=== PATIENT | female | born 1965 | race African-American/Black ===

== ENCOUNTER 2016-06-25 18:53 | Emergency (ER) | payer OTHER ==
[~2016-06-25] VITALS: Ht 170.2 cm; Wt 104.3 kg
[~2016-06-25 18:53] MED LIST: ALBUTEROL SULF8.5 GM INH; ANUSOL-HC25 MG RECTAL; ASPIR 8181 MG PO; AUGMENTIN 875-1 EAC1 ORAL; AZITHROMYCIN250 MG ORAL; CIPROFLOXACIN500 M2 ORAL; CLOTRIMAZOLE-745 GM VG; CODEINE 30MG TA30 MG PO; DIFLUCAN100 MG ORAL; DIFLUCAN200 MG ORAL; FLUCONAZOLE100 MG ORAL; FUROSEMIDE20 M1 ORAL; HYDROCODON-ACE1 EA18 PO; IBUPROFEN600 MG ORAL; IBUPROFEN800 MG ORAL; MACRODANTIN100 MG ORAL; MUPIROCIN15 GM TOPIC; NAPROXEN375 MG ORAL; NORCO 10/3251 EA ORAL; NORCO 5-325 TA1 EACH ORAL; OXYCONTIN10 MG PO; PREDNISONE20 MG ORAL; PROMETHAZINE-C118 M1 ORAL; ZOCOR20 MG ORAL; ZYRTEC10 MG ORAL
[2016-06-25] MEDS ORDERED: POTASSIUM 25 M25 ME1 PO (19:05)
[2016-06-25] MEDS ORDERED: OMEPRAZOLE40 M1 ORAL (19:05)
[2016-06-25] MEDS ORDERED: Aspirin Baby 81mg ORAL ONE (19:30)
[2016-06-25] MEDS ORDERED: Ketorolac 30mg Inj IV ONE (19:30)
[2016-06-25] MEDS ORDERED: Famotidine 20 MG/ 2ML VIAL IVP ONE (19:30)
[2016-06-25] MEDS ORDERED: Mylanta II UD 30ml ORAL ONE (19:30)
--- NOTE | 2016-06-25 19:30 | Emergency Room Report ---
History of Present Illness General Chief Complaint: Chest Pain Source: Patient Present Illness HPI Patient presents with substernal chest pain. Been intermittent. Some exertional. When she feels anxious she gets grabbing pain in the center of her chest. It radiates somewhat to her right arm. She also feels acid in her stomach. She was given a prescription for omeprazole by her doctor. She's been she's been taking it. She also has hypertension has been taking medication for that. She did not take her aspirin this morning. Patient is under tremendous stress at this time. She also complained of a migraine headache on the left-hand side that is throbbing. She is asking for some Toradol for this pain. Her doctors ordered a battery of tests. When she has headaches like this she gets numbness in her right arm. This is intermittent. She just saw her MD today and he recommended she come to the emergency department. No dysuria, change in bowels. No vomiting. No fevers or change in vision. Allergies: Coded Allergies: No Known Allergies (Verified , 02/13/16) Patient History Past Medical History: see triage record Social History: Denies: smoking Social History Narrative , works for [employer] : 2 Para: 2 Reviewed Nursing Documentation: PMH: Agreed, PSxH: Agreed Nursing Documentation-PMH Hx Hypertension: Yes Hx Pacemaker: No Hx Asthma: Yes - Bronchitis, Emphysema Hx COPD: No Hx Diabetes: No Hx Cancer: No Hx Dialysis: No Hx Cerebrovascular Accident: No Hx Seizures: No Review of Systems All Other Systems: negative except mentioned in HPI Physical Exam Vital Signs Date Time Temp Pulse Resp B/P Pulse Ox O2 Delivery O2 Flow Rate FiO2 06/25/16 18:58 97.9 63 16 151/90 99 Room Air Sp02 EP Interpretation: reviewed, normal General Appearance: well appearing, no apparent distress, GCS 15 Head: normocephalic Eyes: bilateral eye EOMI, bilateral eye PERRL, bilateral eye normal inspection ENT: moist mucus membranes Neck: supple, no bony tend Respiratory: chest non-tender, lungs clear, normal breath sounds Cardiovascular #1: regular rate, rhythm Cardiovascular #2: 2+ radial (R) Gastrointestinal: normal inspection, normal bowel sounds, non tender, no mass, non-distended Musculoskeletal: back normal, gait/station normal, normal range of motion Neurologic: alert, oriented x3, risk control field representative III-XII nml as tested, motor strength/tone normal, DTRs symmetric, sensory intact, cerebellar normal, normal gait, speech normal Psychiatric: no suicidal/homicidal ideation, depressed affect, anxious Skin: normal inspection, warm/dry Medical Decision Making Diagnostic Impression: Primary Impression: Chest pain Qualified Codes: R07.9 - Chest pain, unspecified Additional Impressions: Esophageal spasm Headache Qualified Codes: R51 - Headache Stress ER Course The patient presents with chest pain that sounds atypical. However due to her the risk factor of hypertension the patient is evaluation for acute coronary syndrome and acute myocardial infarction. VS against PE. Will be evaluated with labs, EKG, chest x-ray. She'll be given aspirin and also she is requesting Toradol. The sounds were esophageal visuals be given Mylanta and Pepcid IV. She's her commencement of stress at this time. Her thyroid be checked also. EKG normal. CXR no CP disease. Labs unremarkable. Patient improved but still c/o headache. Percocet ordered. Patient improved with treatment. Discussed stress. Patient stable for outpatient observation and treatment Laboratory Tests Test 06/25/16 19:25 White Blood Count 7.2 K/UL (4.8-10.8) Red Blood Count 5.96 M/UL (4.20-5.40) H Hemoglobin 12.2 G/DL (12.0-16.0) Hematocrit 39.8 % (37.0-47.0) Mean Corpuscular Volume 67 FL (80-99) L Mean Corpuscular Hemoglobin 20.4 PG (27.0-31.0) L Mean Corpuscular Hemoglobin Concent 30.6 G/DL (32.0-36.0) L Red Cell Distribution Width 13.2 % (11.6-14.8) Platelet Count 173 K/UL (150-450) Mean Platelet Volume 11.9 FL (6.5-10.1) H Neutrophils (%) (Auto) 42.9 % (45.0-75.0) L Lymphocytes (%) (Auto) 41.8 % (20.0-45.0) Monocytes (%) (Auto) 7.9 % (1.0-10.0) Eosinophils (%) (Auto) 5.7 % (0.0-3.0) H Basophils (%) (Auto) 1.7 % (0.0-2.0) Urine Color Pale yellow Urine Appearance Slightly cloudy Urine pH 5 (4.5-8.0) Urine Specific [place] 1.015 (1.005-1.035) Urine Protein Negative (NEGATIVE) Urine Glucose (UA) Negative (NEGATIVE) Urine Ketones Negative (NEGATIVE) Urine Occult Blood 1+ (NEGATIVE) H Urine Nitrite Negative (NEGATIVE) Urine Bilirubin Negative (NEGATIVE) Urine Urobilinogen Normal MG/DL (0.0-1.0) Urine Leukocyte Esterase Negative (NEGATIVE) Urine RBC 0-2 /HPF (0 - 2) Urine WBC 0-2 /HPF (0 - 2) Urine Squamous Epithelial Cells Many /LPF (NONE/OCC) H Urine Bacteria Few /HPF (NONE) Sodium Level 139 mEQ/L (135-145) Potassium Level 4.1 mEQ/L (3.4-4.9) Chloride Level 99 mEQ/L (98-107) Carbon Dioxide Level 25 mEQ/L (20-30) Anion Gap 15 (5-15) Blood Urea Nitrogen 16 mg/dL (7-23) Creatinine 1.1 mg/dL (0.5-0.9) H Estimate Glomerular Filtration Rate > 60 mL/min (>60) Glucose Level 89 mg/dL (74-106) Calcium Level 9.2 mg/dL (8.6-10.2) Total Bilirubin 0.2 mg/dL (0.0-1.2) Aspartate Amino Transferase (AST) 17 U/L (5-40) Alanine Aminotransferase (ALT) 10 U/L (3-33) Alkaline Phosphatase 80 U/L (35-104) Total Creatine Kinase 92 U/L (26-140) Troponin I < 0.30 ng/mL (<=0.30) Total Protein 7.2 g/dL (6.6-8.7) Albumin 4.0 g/dL (3.5-5.2) Globulin 3.2 g/dL Albumin/Globulin Ratio 1.2 (1.0-2.7) Thyroid Stimulating Hormone (TSH) 1.150 uIU/mL (0.300-4.500) Urine Opiates Screen Negative (NEGATIVE) Urine Barbiturates Screen Negative (NEGATIVE) Phencyclidine (PCP) Screen Negative (NEGATIVE) Urine Amphetamines Screen Negative (NEGATIVE) Urine Benzodiazepines Screen Negative (NEGATIVE) Urine Cocaine Screen Negative (NEGATIVE) Urine Marijuana (THC) Screen Negative (NEGATIVE) EKG Diagnostic Results Rate: normal Rhythm: NSR ST Segments: no acute changes Rhythm Strip Diag. Results EP Interpretation: yes Rhythm: NSR, no PVC's, no ectopy Chest X-Ray Diagnostic Results EP Interpretation: Yes Findings: no consolidation, no effusion, no pneumothorax, no acute cardiopulmonary disease Number of Views: 1 Last Vital Signs Date Time Temp Pulse Resp B/P Pulse Ox O2 Delivery O2 Flow Rate FiO2 06/25/16 22:10 97.9 88 16 148/90 99 Room Air Status: improved Disposition: HOME, SELF-CARE Condition: Improved Marco Montes M.D. Jun 25, 2016 19:30
[2016-06-25 20:02] LABS: BASOPHILS % (AUTO) 1.7 % (0.0-2.0); EOSINOPHILS % (AUTO) 5.7 % (0.0-3.0); LYMPHOCYTES % (AUTO) 41.8 % (20.0-45.0); MEAN CORPUSCULAR HEMOGLOBIN 20.4 PG (27.0-31.0); MEAN CORPUSCULAR HGB CONC 30.6 G/DL (32.0-36.0); MEAN CORPUSCULAR VOLUME 67 FL (80-99); MEAN PLATELET VOLUME 11.9 FL (6.5-10.1); MONOCYTES % (AUTO) 7.9 % (1.0-10.0); NEUTROPHILS % (AUTO) 42.9 % (45.0-75.0); PLATELET COUNT 173 K/UL (150-450); RED BLOOD COUNT 5.96 M/UL (4.20-5.40); RED CELL DISTRIBUTION WIDTH 13.2 % (11.6-14.8); WHITE BLOOD COUNT 7.2 K/UL (4.8-10.8)
[2016-06-25 20:13] LABS: APPEARANCE,URINE SLIGHTLY CLOUDY; KETONES,URINE NEGATIVE (NEGATIVE); LEUKOCYTE ESTERASE ,URINE NEGATIVE (NEGATIVE); NITRITE,URINE NEGATIVE (NEGATIVE); PH,URINE 5 (4.5-8.0); PROTEIN,URINE NEGATIVE (NEGATIVE); TROPONIN I < 0.30 ng/mL (<=0.30); UROBILINOGEN,URINE NORMAL MG/DL (0.0-1.0)
[2016-06-25 20:18] LABS: ALANINE AMINOTRANSFERASE 10 U/L (3-33); ALBUMIN/GLOBULIN RATIO 1.2 (1.0-2.7); ANION GAP 15 (5-15); ASPARTATE AMINO TRANSFERASE 17 U/L (5-40); CALCIUM 9.2 mg/dL (8.6-10.2); CARBON DIOXIDE 25 mEQ/L (20-30); CHLORIDE 99 mEQ/L (98-107); CREATININE 1.1 mg/dL (0.5-0.9); GLOMERULAR FILTRATION RATE > 60 mL/min (>60); HEMOLYSIS 62; POTASSIUM 4.1 mEQ/L (3.4-4.9); SODIUM 139 mEQ/L (135-145); TOTAL PROTEIN 7.2 g/dL (6.6-8.7)
[2016-06-25 20:20] LABS: RBC,URINE 0-2 /HPF (0 - 2); WBC,URINE 0-2 /HPF (0 - 2)
[2016-06-25 20:21] LABS: BACTERIA,URINE FEW /HPF; SQUAMOUS EPITHELIAL CELL,UR MANY /LPF (NONE/OCC)
[2016-06-25] MEDS ORDERED: Oxycodone/Acetaminophen 5-325 ORAL ONE (21:15)
[2016-06-25 21:57] VITALS: BP 148/90
[2016-06-25 22:10] VITALS: BP 148/90
--- NOTE | 2016-06-28 08:09 | Diagnostic Imaging Report ---
Indication: Chest pain Technique: XRAY CHEST 1 V Comparison: 07/19/15 Findings: Cardiomediastinal silhouette is stable. There is no consolidation or pleural effusion. Osseous structures are stable. Impression: No acute cardiopulmonary disease.
--- NOTE | 2016-07-02 16:43 | Cardiology Report ---
APPROVED REPORT EKG Measurement Heart [id number] Normal sinus rhythm with sinus arrhythmia Normal ECG
== END 2016-06-25 22:10 | disposition home or self-care (01) ==
LOC: EMR 19:46
DX: R07.9 Chest pain, unspecified (principal); R51 Headache; F43.9 Reaction to severe stress, unspecified; K22.4 Dyskinesia of esophagus; J45.909 Unspecified asthma, uncomplicated
CPT/HCPCS: 36415; 71010; 80053; 80300; 81003; 82550; 84443; 84484; 85025; 93005; 96374; 96375; 99284; J1885; J2405; S0028

== ENCOUNTER 2016-09-03 23:17 | Emergency (ER) | payer OTHER ==
[~2016-09-03] VITALS: Ht 170.2 cm; Wt 99.8 kg
[~2016-09-03 23:17] MED LIST changes: +OMEPRAZOLE40 M1 ORAL; +POTASSIUM 25 M25 ME1 PO
[2016-09-04] MEDS ORDERED: Ketorolac 30mg Inj IV ONE (00:15)
[2016-09-04 00:33] LABS: BASOPHILS % (AUTO) 1.2 % (0.0-2.0); EOSINOPHILS % (AUTO) 7.2 % (0.0-3.0); LYMPHOCYTES % (AUTO) 36.9 % (20.0-45.0); MEAN CORPUSCULAR HEMOGLOBIN 20.7 PG (27.0-31.0); MEAN CORPUSCULAR HGB CONC 31.7 G/DL (32.0-36.0); MEAN CORPUSCULAR VOLUME 65 FL (80-99); MEAN PLATELET VOLUME 10.7 FL (6.5-10.1); MONOCYTES % (AUTO) 8.8 % (1.0-10.0); NEUTROPHILS % (AUTO) 45.9 % (45.0-75.0); PLATELET COUNT 193 K/UL (150-450); RED BLOOD COUNT 6.14 M/UL (4.20-5.40); RED CELL DISTRIBUTION WIDTH 13.8 % (11.6-14.8); WHITE BLOOD COUNT 7.7 K/UL (4.8-10.8)
[2016-09-04 00:34] LABS: APPEARANCE,URINE CLEAR; KETONES,URINE 1+ (NEGATIVE); LEUKOCYTE ESTERASE ,URINE NEGATIVE (NEGATIVE); NITRITE,URINE NEGATIVE (NEGATIVE); PH,URINE 5 (4.5-8.0); PROTEIN,URINE 1+ (NEGATIVE); UROBILINOGEN,URINE 1 MG/DL (0.0-1.0)
[2016-09-04 00:49] LABS: WBC,URINE 0 /HPF (0 - 2)
[2016-09-04 00:50] LABS: ALANINE AMINOTRANSFERASE 10 U/L (3-33); ALBUMIN/GLOBULIN RATIO 1.2 (1.0-2.7); ANION GAP 16 (5-15); ASPARTATE AMINO TRANSFERASE 15 U/L (5-40); BACTERIA,URINE FEW /HPF; CALCIUM 9.5 mg/dL (8.6-10.2); CARBON DIOXIDE 25 mEQ/L (20-30); CHLORIDE 100 mEQ/L (98-107); CREATININE 1.1 mg/dL (0.5-0.9); GLOMERULAR FILTRATION RATE > 60 mL/min (>60); HEMOLYSIS 32; LIPASE 33 U/L (< 60); POTASSIUM 4.1 mEQ/L (3.4-4.9); SODIUM 141 mEQ/L (135-145); SQUAMOUS EPITHELIAL CELL,UR MANY /LPF (NONE/OCC); TOTAL PROTEIN 7.5 g/dL (6.6-8.7)
[2016-09-04] MEDS ORDERED: Morphine Sulfate 4mg/ml Inj ONE (01:16)
[2016-09-04] MEDS ORDERED: Morphine Sulfate 4mg/ml Inj IVP ONE (01:30)
[2016-09-04] MEDS ORDERED: HYDROCODON-ACE1 EA15 ORAL (02:01)
[2016-09-04] MEDS ORDERED: IBUPROFEN600 MG ORAL (02:01)
--- NOTE | 2016-09-04 02:02 | Emergency Room Report ---
History of Present Illness General Chief Complaint: Pain Source: Patient Present Illness HPI Is a 51-year-old female with history of chronic pelvic pain. She is postmenopausal. Pain seemed to be worse in the last couple weeks. She is here because her is also here. She also complaining of joint pain. Pain is 8/10. Worse with movement. No fever or chills but no nausea no vomiting. Has not take anything for this. Allergies: Coded Allergies: No Known Allergies (Verified , 02/13/16) Patient History Past Medical History: see triage record, old chart reviewed Past Surgical History: other Pertinent Family History: none Social History: Denies: smoking Last Menstrual Period: MENOPAUSE Now: No Immunizations: other Reviewed Nursing Documentation: PMH: Agreed, PSxH: Agreed Nursing Documentation-PMH Hx Hypertension: Yes Hx Pacemaker: No Hx Asthma: Yes - Bronchitis, Emphysema Hx COPD: No Hx Diabetes: No Hx Cancer: No Hx Dialysis: No Hx Cerebrovascular Accident: No Hx Seizures: No Review of Systems Eye: Denies: blurred vision, eye pain ENT: Denies: ear pain, nose congestion, throat swelling Respiratory: Denies: cough, shortness of breath Cardiovascular: Denies: chest pain, palpitations Gastrointestinal: Reports: abdominal pain, Denies: diarrhea, nausea, vomiting Musculoskeletal: Reports: joint pain, Denies: back pain Skin: Denies: rash Neurological: Denies: headache, numbness Endocrine: Denies: increased thirst, increased urine Hematologic/Lymphatic: Denies: easy bruising All Other Systems: negative except mentioned in HPI Physical Exam Vital Signs Date Time Temp Pulse Resp B/P Pulse Ox O2 Delivery O2 Flow Rate FiO2 09/03/16 23:46 98.1 73 16 143/81 99 Room Air vitals normal Sp02 EP Interpretation: reviewed, normal General Appearance: well appearing, no apparent distress, alert Head: normocephalic, atraumatic Eyes: bilateral eye EOMI, bilateral eye PERRL ENT: hearing grossly normal, normal pharynx Neck: full range of motion, supple, no meningismus Respiratory: chest non-tender, lungs clear, normal breath sounds Cardiovascular #1: regular rate, rhythm, no murmur Gastrointestinal: normal bowel sounds, no mass, no organomegaly, no bruit, non- distended, tenderness - Right suprapubic Musculoskeletal: back normal, gait/station normal, normal range of motion, other - Effusion to right knee Neurologic: alert, oriented x3 Psychiatric: mood/affect normal Skin: warm/dry Medical Decision Making Diagnostic Impression: Primary Impression: Pelvic pain Additional Impressions: Ovarian cyst Qualified Codes: N83.201 - Unspecified ovarian cyst, right side; N83.202 - Unspecified ovarian cyst, left side Sacro-iliac pain ER Course Patient with exacerbation of chronic pain. No evidence of acute abdomen. Normal appendix. We'll discharge home. She will need further workup as can be done as an outpatient. Lab Results Impression labs normal CT/MRI/US Diagnostic Results CT/MRI/US Diagnostic Results : Imaging Test Ordered: CT abdomen and pelvis Impression Read by radiologist. Multiple adnexal cyst. Degenerative changes of the sacroiliac joints. Last Vital Signs Date Time Temp Pulse Resp B/P Pulse Ox O2 Delivery O2 Flow Rate FiO2 09/04/16 00:54 98.1 09/03/16 23:46 73 16 143/81 99 Room Air Status: improved Disposition: HOME, SELF-CARE Condition: Stable Scripts Ibuprofen* (MOTRIN*) 600 Mg Tablet 600 MG ORAL THREE TIMES A DAY, #30 TAB 0 Refills Prov: HONEY WILLIS M.D. 09/04/16 Hydrocodone/Acetaminophen 5-325* (HYDROCODONE/ACETAMINOPHEN 5-325*) 1 Each Tablet 1 TAB ORAL Q6H Y for For Pain, #30 TAB 0 Refills Prov: HONEY WILLIS M.D. 09/04/16 Referrals: [facility],REFERRING (PCP) Additional Instructions: Followup with your DrJocy in 2 to 3 days. Return if worse. HONEY WILLIS M.D. September 04, 2016 02:02
[2016-09-04 02:19] VITALS: BP 140/79
--- NOTE | 2016-09-04 10:09 | Diagnostic Imaging Report ---
Indication: Abdominal pain Technique: CT scan of the abdomen and pelvis utilizing automated exposure control without intravenous or oral contrast. Axial, sagittal and coronal images were obtained. CT dose: Total DLP 1208 mGycm; CTDI vol 23.4 mGy Comparison: None available Findings: Evaluation of the solid organs is limited without intravenous contrast material. Liver, adrenal glands, spleen and the pancreas are unremarkable. Gallbladder is contracted without CT evident gallstones. There is a 1.7 cm left renal hypodensity incompletely characterized probably a cyst. There is no hydronephrosis. No renal or ureteral calculi are identified. The small bowel loops are normal in caliber. There is a fat-containing umbilical hernia. The appendix is normal. The uterus is absent. Multiple left adnexal hypodensities are seen measuring up to 2.6 cm. There is no free intraperitoneal fluid or air. The abdominal aorta is normal in caliber. Atherosclerotic changes are present. The osseous structures demonstrate no acute abnormality. Impression: No hydronephrosis, renal or ureteral calculi. Normal appendix. Left renal hypodensity incompletely characterized probably a cyst. Further evaluation with ultrasound recommended as indicated. Hysterectomy. Multiple small left adnexal hypodensities measuring up to 2.6 cm which could represent cysts. Correlation with ultrasound recommended. Mild suprapubic subcutaneous stranding could be related to prior surgery. Clinical correlation recommended. Fat-containing umbilical hernia. Other findings as above. The CT scanner at [facility] is accredited by the [employer] and the scans are performed using protocols designed to limit radiation exposure to as low as reasonably achievable to attain images of sufficient resolution adequate for diagnostic evaluation.
== END 2016-09-04 02:23 | disposition home or self-care (01) ==
LOC: EMR 23:59
DX: N83.201 Unspecified ovarian cyst, right side (principal); N83.202 Unspecified ovarian cyst, left side; R10.2 Pelvic and perineal pain; I10 Essential (primary) hypertension; J45.909 Unspecified asthma, uncomplicated; G89.29 Other chronic pain
CPT/HCPCS: 36415; 74176; 80053; 81003; 83690; 85025; 96360; 96374; 96375; 99284; J1885; J2270

== ENCOUNTER 2016-12-08 14:27 | Emergency (ER) | payer OTHER ==
[~2016-12-08] VITALS: Ht 170.2 cm; Wt 104.3 kg
[~2016-12-08 14:27] MED LIST changes: +HYDROCODON-ACE1 EA15 ORAL
--- NOTE | 2016-12-08 14:49 | Emergency Room Report ---
History of Present Illness General Chief Complaint: Asthma Source: Patient Present Illness HPI 51 YO female presents to the ED c/o chest tightness and feeling SOB since last night. pt. states her symptoms are constant. pt reports hx of asthma and reports being out of her nebulized albuterol, and her albuterol MDI is not providing relief. pt. denies fevers, chills, recent illness. pt reports non- productive cough. pt. denies cardiac hx, however sister in childhood due to heart failure, grandmother from [place]. pt. denies recent travel, claudication, or estrogen replacement/ control. pt. reports hx of LE edema for which she is rx'd lasix for. pt. states she is supposed to take potassium daily with lasix, however is non-compliant. Denies Palpitations , LOC, AMS, dizziness, Changes in Vision, Sensation, paresthesias, or a sudden severe headache. Allergies: Coded Allergies: No Known Allergies (Verified , 02/13/16) Patient History Past Medical History: see triage record Past Surgical History: none Pertinent Family History: none Now: No Reviewed Nursing Documentation: PMH: Agreed, PSxH: Agreed Nursing Documentation-PMH Past Medical History: No History, Except For Hx Hypertension: Yes Hx Pacemaker: No Hx Asthma: Yes - Bronchitis, Emphysema Hx COPD: No Hx Diabetes: No Hx Cancer: No Hx Dialysis: No Hx Cerebrovascular Accident: No Hx Seizures: No Review of Systems All Other Systems: negative except mentioned in HPI Physical Exam Vital Signs Date Time Temp Pulse Resp B/P Pulse Ox O2 Delivery O2 Flow Rate FiO2 12/08/16 14:38 97.9 69 22 161/81 99 Room Air Sp02 EP Interpretation: reviewed, normal General Appearance: no apparent distress, alert, GCS 15, non-toxic Head: normocephalic, atraumatic Eyes: bilateral eye PERRL, bilateral eye normal inspection ENT: hearing grossly normal, normal pharynx, no angioedema, normal voice Neck: full range of motion, supple/symm/no masses Respiratory: chest non-tender, lungs clear, normal breath sounds, speaking full sentences Cardiovascular #1: regular rate, rhythm, no edema Rectal: deferred Genitourinary: normal inspection, no CVA tenderness Musculoskeletal: back normal, gait/station normal, normal range of motion, non- tender, no calf tenderness Neurologic: alert, oriented x3, responsive, motor strength/tone normal, sensory intact, speech normal Psychiatric: judgement/insight normal, memory normal, mood/affect normal, no suicidal/homicidal ideation Reflexes: 4+ bicep (R), 4+ bicep (L), 4+ tricep (R), 4+ tricep (L), 4+ knee (R) , 4+ knee (L) Skin: normal color, no rash, warm/dry, well hydrated Lymphatic: no adenopathy Medical Decision Making PA Attestation Dr. Dyer is my supervising Physician whom patient management has been discussed with. Diagnostic Impression: Primary Impression: Asthma Qualified Codes: J45.20 - Mild intermittent asthma, uncomplicated Additional Impression: Nonspecific chest pain ER Course 51 YO female presents to the ED c/o chest tightness and feeling SOB since last night. pt. states her symptoms are constant. pt reports hx of asthma and reports being out of her nebulized albuterol, and her albuterol MDI is not providing relief. pt. denies fevers, chills, recent illness. pt reports non- productive cough. pt. denies cardiac hx, however sister in childhood due to heart failure, grandmother from [place]. pt. denies recent travel, claudication, or estrogen replacement/ control. pt. reports hx of LE edema for which she is rx'd lasix for. pt. states she is supposed to take potassium daily with lasix, however is non-compliant. Denies Palpitations , LOC, AMS, dizziness, Changes in Vision, Sensation, paresthesias, or a sudden severe headache. Ddx considered but are not limited to [place], pneumonia, contusion, costochondritis , PE, ACS, Shoulder strain, Chest wall contusion. aortic dissection. Vital signs: are WNL, pt. is afebrile H&PE are most consistent with asthma exacerbation, will r/o cardiac cause. ORDERS: -- EK BPM NSR - no acute ST changes, decreased T-waves reviewed by Dr. Dyer , this interpretation was scribed by MODESTO Cuevas -CBC: WNL -CMP: potassium is low at 3.8 -CK-MB: WNL -Troponins: WNL CXR: No consolidation, effusion, pneumothorax or acute cardiopulmonary findings per soft read in ED by Dr. Dyer ED INTERVENTIONS: - nebulized albuterol Treatment - 0,5mg Ativan PO -20meq KCl PO d/w pt. importance of taking DISCHARGE: At this time pt. is stable for d/c to home. Will provide printed patient care instructions, and any necessary prescriptions. Care plan and follow up instructions have been discussed with the patient prior to discharge. Labs Test 12/08/16 16:50 White Blood Count 8.2 K/UL (4.8-10.8) Red Blood Count 5.95 M/UL (4.20-5.40) Hemoglobin 12.5 G/DL (12.0-16.0) Hematocrit 40.8 % (37.0-47.0) Mean Corpuscular Volume 68 FL (80-99) Mean Corpuscular Hemoglobin 21.1 PG (27.0-31.0) Mean Corpuscular Hemoglobin Concent 30.8 G/DL (32.0-36.0) Red Cell Distribution Width 13.1 % (11.6-14.8) Platelet Count 204 K/UL (150-450) Mean Platelet Volume 10.9 FL (6.5-10.1) Neutrophils (%) (Auto) 50.8 % (45.0-75.0) Lymphocytes (%) (Auto) 35.0 % (20.0-45.0) Monocytes (%) (Auto) 8.4 % (1.0-10.0) Eosinophils (%) (Auto) 4.7 % (0.0-3.0) Basophils (%) (Auto) 1.2 % (0.0-2.0) Sodium Level 140 mEQ/L (135-145) Potassium Level 3.5 mEQ/L (3.4-4.9) Chloride Level 101 mEQ/L (98-107) Carbon Dioxide Level 29 mEQ/L (20-30) Anion Gap 10 (5-15) Blood Urea Nitrogen 14 mg/dL (7-23) Creatinine 1.0 mg/dL (0.5-0.9) Estimat Glomerular Filtration Rate > 60 mL/min (>60) Glucose Level 108 mg/dL (74-106) Calcium Level 11.5 mg/dL (8.6-10.2) Total Bilirubin 0.4 mg/dL (0.0-1.2) Aspartate Amino Transf (AST/SGOT) 15 U/L (5-40) Alanine Aminotransferase (ALT/SGPT) 12 U/L (3-33) Alkaline Phosphatase 94 U/L (35-104) Total Creatine Kinase 91 U/L (26-140) Creatine Kinase MB < 1.5 ng/mL (< 3.8) Creatine Kinase MB Relative Index 1.6 Troponin I < 0.30 ng/mL (<=0.30) Total Protein 7.6 g/dL (6.6-8.7) Albumin 4.6 g/dL (3.5-5.2) Globulin 3.0 g/dL Albumin/Globulin Ratio 1.5 (1.0-2.7) Last Vital Signs Date Time Temp Pulse Resp B/P Pulse Ox O2 Delivery O2 Flow Rate FiO2 12/08/16 14:38 97.9 69 22 161/81 99 Room Air Disposition: HOME, SELF-CARE Condition: Stable Scripts Prednisone* (PREDNISONE*) 20 Mg Tablet 40 MG ORAL DAILY for 5 Days, #10 TAB Prov: Gayla Cuevas 12/08/16 Albuterol Sulfate* (ALBUTEROL SULFATE HHN*) 2.5 Mg/3 Ml Vial.neb 3 ML INH Q6H Y for Shortness of Breath, #30 EA 0 Refills Prov: Gayla Cuevas 12/08/16 Patient Instructions: Asthma, Adult, Nonspecific Chest Pain, [id number] Additional Instructions: Take medications as directed. Follow up with a Primary Care Provider in 3-5 days, even if your symptoms have resolved. --Please review list of primary care clinics, if you do not already have a primary care provider Return sooner to ED if new symptoms occur, or current symptoms become worse. - Please note that this Emergency Department Report was dictated using [employer] physical education teacher technology software, occasionally this can lead to erroneous entry secondary to interpretation by the dictation equipment. Gayla Cuevas Dec 08, 2016 14:49
[2016-12-08] MEDS ORDERED: Albuterol ud Inhalation HHN ONE (15:00)
[2016-12-08 17:08] LABS: BASOPHILS % (AUTO) 1.2 % (0.0-2.0); EOSINOPHILS % (AUTO) 4.7 % (0.0-3.0); MEAN CORPUSCULAR HEMOGLOBIN 21.1 PG (27.0-31.0); MEAN CORPUSCULAR HGB CONC 30.8 G/DL (32.0-36.0); MEAN CORPUSCULAR VOLUME 68 FL (80-99); MEAN PLATELET VOLUME 10.9 FL (6.5-10.1); MONOCYTES % (AUTO) 8.4 % (1.0-10.0); NEUTROPHILS % (AUTO) 50.8 % (45.0-75.0); PLATELET COUNT 204 K/UL (150-450); RED BLOOD COUNT 5.95 M/UL (4.20-5.40); RED CELL DISTRIBUTION WIDTH 13.1 % (11.6-14.8); WHITE BLOOD COUNT 8.2 K/UL (4.8-10.8)
[2016-12-08] MEDS ORDERED: LORazepam 0.5mg tab ORAL ONE (17:15)
[2016-12-08 17:24] LABS: ALANINE AMINOTRANSFERASE 12 U/L (3-33); ALBUMIN/GLOBULIN RATIO 1.5 (1.0-2.7); ANION GAP 10 (5-15); ASPARTATE AMINO TRANSFERASE 15 U/L (5-40); CALCIUM 11.5 mg/dL (8.6-10.2); CARBON DIOXIDE 29 mEQ/L (20-30); CHLORIDE 101 mEQ/L (98-107); GLOMERULAR FILTRATION RATE > 60 mL/min (>60); HEMOLYSIS 7; POTASSIUM 3.5 mEQ/L (3.4-4.9); SODIUM 140 mEQ/L (135-145); TOTAL PROTEIN 7.6 g/dL (6.6-8.7); TROPONIN I < 0.30 ng/mL (<=0.30)
[2016-12-08 17:34] LABS: CKMB < 1.5 ng/mL (< 3.8)
[2016-12-08] MEDS ORDERED: ALBUTEROL2.5 MG/3 M INH (17:39)
[2016-12-08] MEDS ORDERED: PREDNISONE20 MG ORAL (17:55)
[2016-12-08 18:08] VITALS: BP 161/81
[2016-12-08 18:10] VITALS: BP 152/79
--- NOTE | 2016-12-10 00:52 | Cardiology Report ---
APPROVED REPORT EKG Measurement Heart [id number] Normal sinus rhythm Septal infarct, age undetermined Abnormal ECG
== END 2016-12-08 18:10 | disposition home or self-care (01) ==
LOC: EMR 16:15
DX: J45.20 Mild intermittent asthma, uncomplicated (principal); R07.9 Chest pain, unspecified; I10 Essential (primary) hypertension
CPT/HCPCS: 36415; 71010; 80053; 82550; 82553; 84484; 85025; 93005; 94640; 94664; 99284; J8499

== ENCOUNTER 2017-02-14 21:45 | Emergency (ER) | payer OTHER ==
[~2017-02-14] VITALS: Ht 170.2 cm; Wt 104.3 kg
[~2017-02-14 21:45] MED LIST changes: +ALBUTEROL2.5 MG/3 M INH
[2017-02-14] MEDS ORDERED: LASIX80 MG ORAL (22:08)
[2017-02-14] MEDS ORDERED: Bicillin LA 2,400,000 units IM ONE (23:00)
[2017-02-14] MEDS ORDERED: Ketorolac 60mg Inj IM ONE (23:00)
[2017-02-14] MEDS ORDERED: FLUCONAZOLE100 MG ORAL (23:13)
[2017-02-14 23:39] VITALS: BP 158/84
[2017-02-14 23:40] VITALS: BP 158/82
--- NOTE | 2017-02-15 06:54 | Emergency Room Report ---
History of Present Illness General Chief Complaint: Vaginal Source: Patient Present Illness HPI The patient is a 52-year-old female who presented after increased skin rash. Patient stated that she had a new vulvar lesion. She stated that she had recently been diagnosed with syphilis. She had a positive RPR on laboratory testing. She had reportedly been having unprotected sex with her partner who was recently found to be cheating on her. patient was noted to have no other skin lesions Allergies: Coded Allergies: No Known Allergies (Verified , 02/13/16) Patient History Past Medical History: see triage record Now: No : 2 Para: 2 Reviewed Nursing Documentation: PMH: Agreed, PSxH: Agreed Nursing Documentation-PMH Hx Hypertension: Yes Hx Pacemaker: No Hx Asthma: Yes - Bronchitis, Emphysema Hx COPD: No Hx Diabetes: No Hx Cancer: No Hx Dialysis: No Hx Cerebrovascular Accident: No Hx Seizures: No Review of Systems All Other Systems: negative except mentioned in HPI Physical Exam Vital Signs Date Time Temp Pulse Resp B/P (MAP) Pulse Ox O2 Delivery O2 Flow Rate FiO2 02/14/17 22:03 98.1 69 14 169/100 100 Room Air General Appearance: well appearing, no apparent distress, alert, GCS 15 Head: normocephalic, atraumatic ENT: hearing grossly normal, normal voice Neck: full range of motion, supple Respiratory: no respiratory distress, speaking full sentences Musculoskeletal: no calf tenderness Neurologic: normal gait Psychiatric: mood/affect normal Skin: no rash Medical Decision Making Diagnostic Impression: Primary Impression: Syphilis ER Course Patient presented for syphilis treatment. Differential diagnosis included was not limited to the laboratory error, multiple infections, chancroid among others. Patient's benign exam and does not appear to require any further imaging or laboratory testing at this time. The patient was given IM penicillin.The patient is advised to follow up with primary care doctor in 1-2 days. Patient is advised to return if any worsening condition or if any changes in status that are concerning. Patient was advised followup for further STD testing is indicated. Last Vital Signs Date Time Temp Pulse Resp B/P (MAP) Pulse Ox O2 Delivery O2 Flow Rate FiO2 02/14/17 23:40 98.1 60 18 158/82 97 Room Air Status: improved Disposition: HOME, SELF-CARE Condition: Stable Scripts Fluconazole (FLUCONAZOLE) 100 Mg Tablet 100 MG ORAL DAILY, #2 TAB 0 Refills Prov: Garland Dyer 02/14/17 Referrals: [facility],REFERR[facility] (PCP) Patient Instructions: Syphilis Garland Dyer Feb 15, 2017 06:54
== END 2017-02-14 23:43 | disposition home or self-care (01) ==
LOC: EMR 22:44
DX: A53.9 Syphilis, unspecified (principal); I10 Essential (primary) hypertension; J45.909 Unspecified asthma, uncomplicated
CPT/HCPCS: 96372; 99284

== ENCOUNTER 2017-03-20 15:44 | Emergency (ER) | payer OTHER ==
[~2017-03-20] VITALS: Ht 170.2 cm; Wt 99.8 kg
[~2017-03-20 15:44] MED LIST changes: +LASIX80 MG ORAL
[2017-03-20 16:15] VITALS: BP 160/91
[2017-03-20] MEDS ORDERED: FLUCONAZOLE100 MG ORAL (16:16)
[2017-03-20] MEDS ORDERED: AMOXICILLIN500 MG ORAL (16:16)
[2017-03-20] MEDS ORDERED: PROMETHAZINE-C118 M1 ORAL (16:16)
[2017-03-20 16:35] VITALS: BP 165/95
--- NOTE | 2017-03-20 17:03 | Emergency Room Report ---
History of Present Illness General Chief Complaint: Chest Pain Source: Patient Present Illness HPI 52-year-old female presents ED for evaluation. States that last 2 days she's had a cough which is productive with yellowish phlegm and blood-tinged sputum. Denies fevers chills. Notes pain with deep breaths. Patient admits to history of COPD. Denies sick contacts or recent travel. No other aggravating relieving factors. Denies any other associated symptoms Allergies: Coded Allergies: No Known Allergies (Verified , 02/13/16) Patient History Past Medical History: none, HTN, asthma, COPD Past Surgical History: none Pertinent Family History: none Social History: Denies: smoking, alcohol use, drug use Now: No Immunizations: UTD Reviewed Nursing Documentation: PMH: Agreed, PSxH: Agreed Nursing Documentation-PMH Past Medical History: No History, Except For Hx Hypertension: Yes Hx Pacemaker: No Hx Asthma: Yes - Bronchitis, Emphysema Hx COPD: No Hx Diabetes: No Hx Cancer: No Hx Dialysis: No Hx Cerebrovascular Accident: No Hx Seizures: No Review of Systems All Other Systems: negative except mentioned in HPI Physical Exam Vital Signs Date Time Temp Pulse Resp B/P (MAP) Pulse Ox O2 Delivery O2 Flow Rate FiO2 03/20/17 16:01 98.2 76 19 163/143 92 Room Air 03/20/17 16:15 100 Sp02 EP Interpretation: reviewed, normal General Appearance: no apparent distress, alert, GCS 15, non-toxic Head: normocephalic, atraumatic Eyes: bilateral eye normal inspection, bilateral eye PERRL ENT: hearing grossly normal, normal pharynx, no angioedema, normal voice Neck: full range of motion, supple/symm/no masses Respiratory: chest non-tender, lungs clear, normal breath sounds, speaking full sentences Cardiovascular #1: regular rate, rhythm, no edema Cardiovascular #2: 2+ carotid (R), 2+ carotid (L), 2+ radial (R), 2+ radial (L) , 2+ dorsalis pedis (R), 2+ dorsalis pedis (L) Gastrointestinal: normal bowel sounds, non tender, soft, non-distended, no guarding, no rebound Rectal: deferred Genitourinary: normal inspection, no CVA tenderness Musculoskeletal: back normal, gait/station normal, normal range of motion, non- tender Neurologic: alert, oriented x3, responsive, motor strength/tone normal, sensory intact, speech normal Psychiatric: judgement/insight normal, memory normal, mood/affect normal, no suicidal/homicidal ideation Reflexes: 3+ bicep (R), 3+ bicep (L), 3+ tricep (R), 3+ tricep (L), 3+ knee (R) , 3+ knee (L) Skin: normal color, no rash, warm/dry, well hydrated Lymphatic: no adenopathy Medical Decision Making Diagnostic Impression: Primary Impression: Atypical pneumonia ER Course Hospital Course 52-year-old female presents to ED with productive cough x2 days Differential diagnoses include: URI, pharyngitis, otitis media, asthma Clinical course Patient placed on stretcher. After initial history, physical exam reveals a middle aged female in no acute distress. Bilateral TM unremarkable. No pharyngeal erythema. No tonsillar exudates. No lymphadenopathy. lungs clear. abdomen soft. Given history of COPD and clinical presentation we will treat as atypical pneumonia and prescribe antibiotics. No breathing treatment indicated at this time Diagnosis - atypical pneumonia Stable and discharged home with Rx Amoxicillin, promethazine. Instructed to followup with PMD. Return to ED if symptoms recur or worsen Last Vital Signs Date Time Temp Pulse Resp B/P (MAP) Pulse Ox O2 Delivery O2 Flow Rate FiO2 03/20/17 16:35 98.2 78 19 165/95 100 Room Air 100 Status: improved Disposition: HOME, SELF-CARE Condition: Stable Scripts Codeine/Promethazine Hcl* (PROMETHAZINE-CODEINE SYRUP*) 118 Ml Syrup 5 ML ORAL Q6H Y for For Cough, #118 ML 0 Refills Prov: FAMILIA DIEGO M.D. 03/20/17 Amoxicillin* (AMOXIL*) 500 Mg Capsule 500 MG ORAL THREE TIMES A DAY, #21 CAP Prov: FAMILIA DIEGO M.D. 03/20/17 Fluconazole (FLUCONAZOLE) 100 Mg Tablet 100 MG ORAL DAILY, #2 TAB 0 Refills Prov: FAMILIA DIEGO M.D. 03/20/17 Referrals: [facility],REFERRING (PCP) Patient Instructions: Community-Acquired Pneumonia, Adult, [id number] FAMILIA DIEGO M.D. Mar 20, 2017 17:03
== END 2017-03-20 16:35 | disposition home or self-care (01) ==
LOC: EMR 16:21
DX: J18.9 Pneumonia, unspecified organism (principal); I10 Essential (primary) hypertension; H44.9 Unspecified disorder of globe
CPT/HCPCS: 99283

== ENCOUNTER 2017-04-08 16:35 | Emergency (ER) | payer OTHER ==
[~2017-04-08] VITALS: Ht 170.2 cm; Wt 99.8 kg
[~2017-04-08 16:35] MED LIST changes: +AMOXICILLIN500 MG ORAL
[2017-04-08] MEDS: Ketorolac 60mg Inj IM ONE (17:38)
[2017-04-08] MEDS: DiphenhydrAMINE 50mg/ml Inj IM ONE (17:39)
[2017-04-08] MEDS ORDERED: BENADRYL25 MG ORAL (17:49)
[2017-04-08] MEDS ORDERED: ROBITUSSIN LON118 ML PO (17:49)
[2017-04-08 18:00] VITALS: BP 154/85
--- NOTE | 2017-04-08 22:26 | Emergency Room Report ---
History of Present Illness General Chief Complaint: Upper Respiratory Illness Source: Patient Present Illness HPI The patient is a 52-year-old female presenting for continued cough, chills, subjective fevers, sore throat on and off for the past month. She was seen here for the same complaint last month and given prescription for antibiotics which she states she completed. Symptoms have persisted. She states that she needs something for her cough. Pain is a 8/10 dull ache to the midchest it occurs with coughing only. She denies any recent travel or known sick contacts. She denies any other symptoms Allergies: Coded Allergies: No Known Allergies (Verified , 02/13/16) Patient History Past Medical History: see triage record Pertinent Family History: none Reviewed Nursing Documentation: PMH: Agreed, PSxH: Agreed Nursing Documentation-PMH Past Medical History: No History, Except For Hx Hypertension: Yes Hx Pacemaker: No Hx Asthma: Yes - Bronchitis, Emphysema Hx COPD: No Hx Diabetes: No Hx Cancer: No Hx Gastrointestinal Problems: Yes - Gastritis, GERD, hemorrhoid Hx Dialysis: No History Of Psychiatric Problem: No Hx Neurological Problems: No Hx Cerebrovascular Accident: No Hx Seizures: No Review of Systems All Other Systems: negative except mentioned in HPI Physical Exam Vital Signs Date Time Temp Pulse Resp B/P (MAP) Pulse Ox O2 Delivery O2 Flow Rate FiO2 04/08/ 16:36 97.7 67 16 179/96 100 Room Air Sp02 EP Interpretation: reviewed, normal General Appearance: no apparent distress, alert, GCS 15, non-toxic Head: normocephalic, atraumatic Eyes: bilateral eye normal inspection, bilateral eye PERRL ENT: hearing grossly normal, normal pharynx, no angioedema, normal voice, nasal congestion Neck: full range of motion, supple/symm/no masses Respiratory: chest non-tender, lungs clear, normal breath sounds, speaking full sentences Cardiovascular #1: regular rate, rhythm, no edema Gastrointestinal: normal bowel sounds, non tender, soft, non-distended, no guarding, no rebound Musculoskeletal: back normal, gait/station normal, normal range of motion, non- tender Neurologic: alert, oriented x3, responsive, motor strength/tone normal, sensory intact, speech normal Psychiatric: judgement/insight normal, memory normal, mood/affect normal, no suicidal/homicidal ideation Skin: normal color, no rash, warm/dry, well hydrated Medical Decision Making PA Attestation Dr. Latif is my supervising physician. Patient management was discussed with my supervising physician Diagnostic Impression: Primary Impression: Cough ER Course The patient is a 52-year-old female presenting for continued cough, chills, subjective fevers, sore throat on and off for the past month Differential diagnosis include but not limited to pharyngitis, sinusitis, AOM, bronchitis, PNA PE: afebrile. No tachypnea. No apparent distress. No TTP over maxillary or frontal sinuses. Lungs: diffuse wheezing. No accessory muscle use. No resp distress Heart: RRR, no abnormal heart sounds Ears: external auditory canal clear. Non erythematous. Bilat TM intact. Cone of light present bilat. No bulging of TM. No serous fluid seen. + nasal congestion Nor cervical lymphad No tonsillar exudate. Uvula midline.Oropharynx non erythematous Two-view chest x-ray unremarkable Cures report shows that the patient's recently filled prescription for [address] She'll be discharged home and told that she needs to followup with her primary doctor. She is given prescription for nonnarcotic cough medication and Benadryl. ER precautions given Last Vital Signs Date Time Temp Pulse Resp B/P (MAP) Pulse Ox O2 Delivery O2 Flow Rate FiO2 04/08/17 18:00 97.6 73 20 154/85 100 Room Air Status: improved Disposition: HOME, SELF-CARE Condition: Improved Scripts Diphenhydramine Hcl* (BENADRYL*) 25 Mg Capsule 25 MG ORAL BEDTIME Y for Itching, #14 CAP Prov: TERZIAN,DALE P.A. 04/08/17 Dextromethorphan Hbr/Chlor-Mal (ROBITUSSIN LONG-ACTING LIQ) 118 Ml Liquid 10 ML PO Q4HR, #118 ML Prov: TERZIAN,DALE P.A. 04/08/17 Patient Instructions: Cough, Adult Additional Instructions: I discussed my findings with the patient. All questions and concerns have been answered. Treatment and medication compliance have been addressed. I advised the patient that they need to follow up with PMD in 3-5 days. Return to ED if pain remains or worsens, cough worsens or remains, you notice blood in your sputum, you notice wheezing, you experience a fever, or if needed for any reason. Patient verbalized understanding of discharge instructions. DALE TOVAR Apr 08, 2017 22:26
--- NOTE | 2017-04-09 08:36 | Diagnostic Imaging Report ---
Indication: Cough Technique: XRAY Chest 2v Comparison: 12/08/2016 Findings: Heart is borderline enlarged but stable in appearance. Mediastinal contours are sharp. There is no focal airspace consolidation, pleural effusion or pneumothorax. No acute osseous abnormality is identified. Surgical clips again noted in the right axilla. Impression: No radiographic evidence of acute cardiopulmonary disease. Unchanged borderline cardiomegaly.
== END 2017-04-08 18:00 | disposition home or self-care (01) ==
LOC: EMR 17:00
DX: R05 Cough (principal); I10 Essential (primary) hypertension; J45.909 Unspecified asthma, uncomplicated
CPT/HCPCS: 71020; 96372; 99284; J1200

== ENCOUNTER 2018-02-05 16:43 | Emergency (ER) | payer OTHER ==
[~2018-02-05] VITALS: Ht 170.2 cm; Wt 108.9 kg
[~2018-02-05 16:43] MED LIST changes: +BENADRYL25 MG ORAL; +ROBITUSSIN LON118 ML PO
--- NOTE | 2018-02-05 17:17 | Emergency Room Report ---
History of Present Illness General Chief Complaint: Syncope Source: Patient, Medical Record Present Illness HPI Patient presents with initial complaint of severe leg pain bilaterally She reports that she has had pain in her legs over the past several weeks She is on diuretics by her primary physician However she reports that she has difficulty going to work secondary to the pain Later patient also reports that she was at spiritism when she had a lapse of consciousness Denies any chest pain denies any back or flank pain denies any fevers or chills Patient reports that she would like to rule out blood clots in her leg Allergies: Coded Allergies: GABAPENTIN (Verified Allergy, Unknown, 02/05/18) Patient History Past Medical History: see triage record Pertinent Family History: none Last Menstrual Period: menopause Reviewed Nursing Documentation: PMH: Agreed; PSxH: Agreed Nursing Documentation-PMH Past Medical History: No History, Except For Hx Cardiac Problems: No - Sickle cell disease, Thalassemia Hx Hypertension: Yes Hx Pacemaker: No Hx Asthma: Yes - Bronchitis, Emphysema Hx COPD: No Hx Diabetes: No Hx Cancer: No Hx Gastrointestinal Problems: No - Gastritis, GERD, hemorrhoid Hx Dialysis: No Hx Neurological Problems: No Hx Cerebrovascular Accident: No Hx Seizures: No Review of Systems All Other Systems: negative except mentioned in HPI Physical Exam Vital Signs Date Time Temp Pulse Resp B/P (MAP) Pulse Ox O2 Delivery O2 Flow Rate FiO2 02/05/18 16:49 98.4 65 18 169/89 96 Room Air 98.4 Sp02 EP Interpretation: reviewed, normal General Appearance: well appearing, no apparent distress Head: normocephalic, atraumatic Eyes: bilateral eye PERRL, bilateral eye EOMI ENT: hearing grossly normal, normal pharynx Neck: supple Respiratory: lungs clear Cardiovascular #1: regular rate, rhythm, other - Mild dependent edema bilaterally Gastrointestinal: non tender, soft Genitourinary: no CVA tenderness Musculoskeletal: normal inspection, other - Patient is subjectively and pain in both calfs Neurologic: alert, oriented x3 Skin: other - As above Lymphatic: no adenopathy Medical Decision Making Diagnostic Impression: Primary Impression: Syncope Additional Impressions: Leg swelling Leg pain ER Course Patient is a fairly complex patient with multiple differential to consideration including but not limited to cardiac cardiopulmonary and vascular emergencies Neurological pathology also entertained given the patient's complaints of leg pain vascular differentials such as DVT also considered however patient's examination does not suggest DVT, the mild swelling is bilateral, there is no erythema or warmth there are no secondary risk factors at this time currently Patient scoring level is low Baseline blood work including potassium levels and hemoglobin counts are appropriate Patient has done well throughout her stay After being prescribed gabapentin reports that she has had allergies to that previously Presenting the consideration of the patient has had this on a more chronic pathology Patient requesting injection of Toradol Has done better and at this time is stable for close outpatient follow-up Labs Test 02/05/18 17:08 White Blood Count 7.4 K/UL (4.8-10.8) Red Blood Count 5.75 M/UL (4.20-5.40) Hemoglobin 12.0 G/DL (12.0-16.0) Hematocrit 38.1 % (37.0-47.0) Mean Corpuscular Volume 66 FL (80-99) Mean Corpuscular Hemoglobin 20.9 PG (27.0-31.0) Mean Corpuscular Hemoglobin Concent 31.5 G/DL (32.0-36.0) Red Cell Distribution Width 12.2 % (11.6-14.8) Platelet Count 202 K/UL (150-450) Mean Platelet Volume 9.7 FL (6.5-10.1) Neutrophils (%) (Auto) 50.7 % (45.0-75.0) Lymphocytes (%) (Auto) 33.6 % (20.0-45.0) Monocytes (%) (Auto) 9.4 % (1.0-10.0) Eosinophils (%) (Auto) 4.8 % (0.0-3.0) Basophils (%) (Auto) 1.5 % (0.0-2.0) Sodium Level 141 MMOL/L (136-145) Potassium Level 3.6 MMOL/L (3.5-5.1) Chloride Level 107 MMOL/L (98-107) Carbon Dioxide Level 25 MMOL/L (21-32) Anion Gap 9 mmol/L (5-15) Blood Urea Nitrogen 17 mg/dL (7-18) Creatinine 1.1 MG/DL (0.55-1.30) Estimat Glomerular Filtration Rate > 60 mL/min (>60) Glucose Level 89 MG/DL (74-106) Calcium Level 9.2 MG/DL (8.5-10.1) Total Bilirubin 0.4 MG/DL (0.2-1.0) Aspartate Amino Transf (AST/SGOT) 14 U/L (15-37) Alanine Aminotransferase (ALT/SGPT) 16 U/L (12-78) Alkaline Phosphatase 123 U/L (46-116) Total Protein 7.7 G/DL (6.4-8.2) Albumin 3.8 G/DL (3.4-5.0) Globulin 3.9 g/dL Albumin/Globulin Ratio 1.0 (1.0-2.7) EKG Diagnostic Results Rate: normal Rhythm: NSR ST Segments: no acute changes Rhythm Strip Diag. Results EP Interpretation: yes Rate: 66 Rhythm: NSR, no PVC's, no ectopy Last Vital Signs Date Time Temp Pulse Resp B/P (MAP) Pulse Ox O2 Delivery O2 Flow Rate FiO2 02/05/18 16:49 98.4 65 18 169/89 96 Room Air 98.4 Status: improved Disposition: HOME, SELF-CARE Condition: Improved Additional Instructions: Patient is provided with the discharge instructions notified to follow up with primary doctor in the next 2-3 days otherwise return to the er with any worsening symptoms. Please note that this report is being documented using [employer]ine technology. This can lead to erroneous entry secondary to incorrect interpretation by the dictating instrument. Alexus Herrera DO Feb 05, 2018 17:17
[2018-02-05 17:25] LABS: BASOPHILS % (AUTO) 1.5 % (0.0-2.0); EOSINOPHILS % (AUTO) 4.8 % (0.0-3.0); HEMATOCRIT 38.1 % (37.0-47.0); LYMPHOCYTES % (AUTO) 33.6 % (20.0-45.0); MEAN CORPUSCULAR VOLUME 66 FL (80-99); MONOCYTES % (AUTO) 9.4 % (1.0-10.0); NEUTROPHILS % (AUTO) 50.7 % (45.0-75.0); PLATELET COUNT 202 K/UL (150-450); RED BLOOD COUNT 5.75 M/UL (4.20-5.40); RED CELL DISTRIBUTION WIDTH 12.2 % (11.6-14.8); WHITE BLOOD COUNT 7.4 K/UL (4.8-10.8)
[2018-02-05 17:34] LABS: ANION GAP 9 mmol/L (5-15); BLOOD UREA NITROGEN 17 mg/dL (7-18); CALCIUM 9.2 MG/DL (8.5-10.1); CARBON DIOXIDE 25 MMOL/L (21-32); CHLORIDE 107 MMOL/L (98-107); CREATININE 1.1 MG/DL (0.55-1.30); POTASSIUM 3.6 MMOL/L (3.5-5.1); SODIUM 141 MMOL/L (136-145)
[2018-02-05 17:39] LABS: ALANINE AMINOTRANSFERASE 16 U/L (12-78); ALBUMIN 3.8 G/DL (3.4-5.0); ALKALINE PHOSPHATASE 123 U/L (46-116); ASPARTATE AMINO TRANSFERASE 14 U/L (15-37); BILIRUBIN,TOTAL 0.4 MG/DL (0.2-1.0)
[2018-02-05] MEDS ORDERED: Ketorolac 60mg Inj IM ONE (17:45)
[2018-02-05 17:49] VITALS: BP 154/88
[2018-02-05 17:50] VITALS: BP 154/88
--- NOTE | 2018-02-08 08:53 | Cardiology Report ---
APPROVED REPORT EKG Measurement Heart [id number] Normal sinus rhythm Normal ECG
== END 2018-02-05 17:50 | disposition home or self-care (01) ==
LOC: EMR 17:45
DX: R55 Syncope and collapse (principal); M79.605 Pain in left leg; M79.604 Pain in right leg; M79.89 Other specified soft tissue disorders; I10 Essential (primary) hypertension; J43.9 Emphysema, unspecified
CPT/HCPCS: 36415; 80053; 85025; 93005; 96372; 99283

== ENCOUNTER 2018-05-05 00:13 | Emergency (ER) | payer OTHER ==
[~2018-05-05] VITALS: Ht 170.2 cm; Wt 111.1 kg
[2018-05-05 00:27] VITALS: BP 178/85
[2018-05-05] MEDS ORDERED: Ipratropium 0.02% Inh Soln 2.5ml UD HHN ONE (00:30)
[2018-05-05] MEDS ORDERED: Albuterol ud Inhalation HHN ONE (00:30)
[2018-05-05] MEDS ORDERED: Solu-MEDROL 125mg Inj IVP ONE (00:30)
--- NOTE | 2018-05-05 00:36 | Emergency Room Report ---
History of Present Illness General Chief Complaint: Chest Pain Source: Patient Present Illness HPI This is a 53-year-old female with history of asthma/chronic bronchitis and hypertension. She presents with chief point short of breath with coughing and congestion for the last 3 days. Now with some chest pain and left arm pain. No fever or chills. Worse with inspiration. Worse with laying flat. When she takes her albuterol she fell her heart beating fast. [place] tightness. Cough is nonproductive in nature. She has tightness in her chest referral because of the coughing. [place] numbness to her left arm. Allergies: Coded Allergies: GABAPENTIN (Verified Allergy, Unknown, 02/05/18) Patient History Past Medical History: see triage record, HTN, asthma, COPD Past Surgical History: other Pertinent Family History: none Social History: Denies: smoking Last Menstrual Period: JANNA Now: No : 4 Para: 2 Immunizations: other Reviewed Nursing Documentation: PMH: Agreed; PSxH: Agreed Nursing Documentation-PMH Hx Cardiac Problems: No - Sickle cell disease, Thalassemia Hx Hypertension: Yes Hx Pacemaker: No Hx Asthma: Yes - Bronchitis, Emphysema Hx COPD: No Hx Diabetes: No Hx Cancer: No Hx Gastrointestinal Problems: No - Gastritis, GERD, hemorrhoid Hx Dialysis: No Hx Neurological Problems: No Hx Cerebrovascular Accident: No Hx Seizures: No Review of Systems Eye: Denies: eye pain, blurred vision ENT: Denies: ear pain, nose congestion, throat swelling Respiratory: Reports: cough, shortness of breath Cardiovascular: Reports: chest pain; Denies: palpitations Gastrointestinal: Denies: abdominal pain, diarrhea, nausea, vomiting Musculoskeletal: Denies: back pain, joint pain Skin: Denies: rash Neurological: Denies: headache, numbness Endocrine: Denies: increased thirst, increased urine Hematologic/Lymphatic: Denies: easy bruising All Other Systems: negative except mentioned in HPI Physical Exam Vital Signs Date Time Temp Pulse Resp B/P (MAP) Pulse Ox O2 Delivery O2 Flow Rate FiO2 05/05/18 00:18 98.1 69 14 181/88 99 Room Air vitals normal except for high blood pressure Sp02 EP Interpretation: reviewed, normal General Appearance: well appearing, no apparent distress, alert Head: normocephalic, atraumatic Eyes: bilateral eye PERRL, bilateral eye EOMI ENT: hearing grossly normal, normal pharynx Neck: full range of motion, supple, no meningismus Respiratory: chest non-tender, lungs clear, normal breath sounds, other - Coughing with inspiration Cardiovascular #1: regular rate, rhythm, no murmur Gastrointestinal: normal bowel sounds, non tender, no mass, no organomegaly, no bruit, non-distended Musculoskeletal: back normal, gait/station normal, normal range of motion Psychiatric: mood/affect normal Skin: warm/dry Medical Decision Making Diagnostic Impression: Primary Impression: Asthma exacerbation with COPD (chronic obstructive pulmonary disease) Additional Impression: Upper respiratory infection, acute ER Course Patient presents with coughing congestion. She has a viral bronchitis. Her after neb lasted treatment. No evidence of pneumonia, ACS, PE, dissection to name a few. We'll discharge home. EKG Diagnostic Results Rate: normal Rhythm: NSR ST Segments: no acute changes Rhythm Strip Diag. Results EP Interpretation: yes Rate: 70 Rhythm: NSR, no PVC's, no ectopy Chest X-Ray Diagnostic Results Chest X-Ray Diagnostic Results : Chest X-Ray Ordered: Yes # of Views/Limited/Complete: 1 View Indication: Chest Pain EP Interpretation: Yes Interpretation: no consolidation, no effusion, no pneumothorax, no acute cardiopulmonary disease Impression: No acute disease Electronically Signed by: Herb Dickey MD Last Vital Signs Date Time Temp Pulse Resp B/P (MAP) Pulse Ox O2 Delivery O2 Flow Rate FiO2 05/05/18 00:18 98.1 69 14 181/88 99 Room Air Status: improved Disposition: HOME, SELF-CARE Condition: Stable Scripts Prednisone* (PREDNISONE*) 20 Mg Tablet 40 MG ORAL DAILY, #8 TAB Prov: Herb Dickey MD 05/05/18 Albuterol Sulfate* (ALBUTEROL SULFATE MDI*) 8.5 Gm Hfa.aer.ad 2 PUFF INH Q4H PRN for cough/wheezing, #1 EA 0 Refills Prov: Herb Dickey MD 05/05/18 Additional Instructions: Follow-up your doctor in 7 days. Increase fluids. Return if symptom worsen. Herb Dickey MD May 05, 2018 00:36
[2018-05-05 00:54] LABS: BASOPHILS % (AUTO) 0.8 % (0.0-2.0); EOSINOPHILS % (AUTO) 4.9 % (0.0-3.0); HEMATOCRIT 37.9 % (37.0-47.0); HEMOGLOBIN 12.1 G/DL (12.0-16.0); LYMPHOCYTES % (AUTO) 34.9 % (20.0-45.0); MEAN CORPUSCULAR VOLUME 64 FL (80-99); MONOCYTES % (AUTO) 7.6 % (1.0-10.0); NEUTROPHILS % (AUTO) 51.9 % (45.0-75.0); PLATELET COUNT 172 K/UL (150-450); RED BLOOD COUNT 5.92 M/UL (4.20-5.40); RED CELL DISTRIBUTION WIDTH 13.2 % (11.6-14.8); WHITE BLOOD COUNT 7.6 K/UL (4.8-10.8)
[2018-05-05 01:05] LABS: ANION GAP 7 mmol/L (5-15); BLOOD UREA NITROGEN 15 mg/dL (7-18); CALCIUM 9.4 MG/DL (8.5-10.1); CARBON DIOXIDE 28 MMOL/L (21-32); CHLORIDE 105 MMOL/L (98-107); POTASSIUM 3.7 MMOL/L (3.5-5.1); SODIUM 140 MMOL/L (136-145)
[2018-05-05 01:09] LABS: ALANINE AMINOTRANSFERASE 15 U/L (12-78); ALBUMIN 3.5 G/DL (3.4-5.0); ALBUMIN/GLOBULIN RATIO 0.9 (1.0-2.7); ALKALINE PHOSPHATASE 132 U/L (46-116); ASPARTATE AMINO TRANSFERASE 12 U/L (15-37); BILIRUBIN,TOTAL 0.3 MG/DL (0.2-1.0)
[2018-05-05 01:41] VITALS: BP 153/77
[2018-05-05] MEDS ORDERED: ALBUTEROL SULF8.5 GM INH (01:44)
[2018-05-05] MEDS ORDERED: PREDNISONE20 MG ORAL (01:44)
[2018-05-05 01:54] VITALS: BP 153/77
--- NOTE | 2018-05-05 11:30 | Diagnostic Imaging Report ---
Indication: Dyspnea Comparison: 04/08/2017 A single view chest radiograph was obtained. Findings: Cardiomediastinal appearance is within normal limits for age. The lungs are clear. Pulmonary vascularity is appropriate. The diaphragmatic contour is smooth and costophrenic angles are sharp. No pleural effusions are identified. The bones are unremarkable. Impression: No acute findings
--- NOTE | 2018-05-05 17:53 | Cardiology Report ---
APPROVED REPORT EKG Measurement Heart [id number] Normal sinus rhythm with sinus arrhythmia Normal ECG
== END 2018-05-05 01:55 | disposition home or self-care (01) ==
LOC: EMR 00:37
DX: J45.901 Unspecified asthma with (acute) exacerbation (principal); J44.9 Chronic obstructive pulmonary disease, unspecified; J06.9 Acute upper respiratory infection, unspecified; I10 Essential (primary) hypertension; K21.9 Gastro-esophageal reflux disease without esophagitis; Z88.8 Allergy status to other drugs, medicaments and biological substances
CPT/HCPCS: 36415; 71045; 80053; 84484; 85025; 93005; 94640; 94664; 96361; 96374; 99284; J2930

== ENCOUNTER 2019-01-05 16:55 | Emergency (ER) | payer OTHER ==
[~2019-01-05] VITALS: Ht 170.2 cm; Wt 108.9 kg
--- NOTE | 2019-01-05 17:18 | NUR ---
ED Nurse Note: Pt came in from home due to bilateral leg swelling and pain " a couple of days" and noticed spider bite on L lower leg since yesterday. Pain 10/10 wendy. Non-pitting +1 edema noted. Skin dry and warm. Pulses felt strong. Pt has hx of Sickle Cell Anemia. AOx4, BP elevated, PA notified. Will cont to monitor.
[2019-01-05] MEDS ORDERED: Morphine Sulfate 2mg/ml Inj(IV/IM USE ONLY) IVP ONE (17:30)
[2019-01-05] MEDS ORDERED: DiphenhydrAMINE 50mg/ml Inj IVP ONE (17:30)
[2019-01-05 17:43] LABS: BASOPHILS % (AUTO) 0.9 % (0.0-2.0); EOSINOPHILS % (AUTO) 6.4 % (0.0-3.0); HEMATOCRIT 38.9 % (37.0-47.0); HEMOGLOBIN 12.1 G/DL (12.0-16.0); LYMPHOCYTES % (AUTO) 35.6 % (20.0-45.0); MEAN CORPUSCULAR VOLUME 66 FL (80-99); MONOCYTES % (AUTO) 7.4 % (1.0-10.0); NEUTROPHILS % (AUTO) 49.8 % (45.0-75.0); PLATELET COUNT 212 K/UL (150-450); RED BLOOD COUNT 5.91 M/UL (4.20-5.40); RED CELL DISTRIBUTION WIDTH 12.7 % (11.6-14.8); WHITE BLOOD COUNT 7.4 K/UL (4.8-10.8)
[2019-01-05 17:44] LABS: APPEARANCE,URINE CLEAR; BILIRUBIN, URINE NEGATIVE (NEGATIVE); GLUCOSE, URINE (UA) NEGATIVE (NEGATIVE); KETONES,URINE 1+ (NEGATIVE); LEUKOCYTE ESTERASE ,URINE NEGATIVE (NEGATIVE); NITRITE,URINE NEGATIVE (NEGATIVE); PH,URINE 5 (4.5-8.0); PROTEIN,URINE NEGATIVE (NEGATIVE); UROBILINOGEN,URINE 1 MG/DL (0.0-1.0)
[2019-01-05 17:49] VITALS: BP 136/83
[2019-01-05 17:50] LABS: COLOR,URINE YELLOW
[2019-01-05 17:53] LABS: INR 0.9 (0.9-1.1)
[2019-01-05 17:55] LABS: ANION GAP 9 mmol/L (5-15); BLOOD UREA NITROGEN 20 mg/dL (7-18); CALCIUM 9.4 MG/DL (8.5-10.1); CARBON DIOXIDE 27 MMOL/L (21-32); CHLORIDE 109 MMOL/L (98-107); POTASSIUM 3.8 MMOL/L (3.5-5.1); SODIUM 145 MMOL/L (136-145)
[2019-01-05 18:05] LABS: ALANINE AMINOTRANSFERASE 16 U/L (12-78); ALBUMIN 3.8 G/DL (3.4-5.0); ALKALINE PHOSPHATASE 125 U/L (46-116); ASPARTATE AMINO TRANSFERASE 14 U/L (15-37); BILIRUBIN,TOTAL 0.4 MG/DL (0.2-1.0)
--- NOTE | 2019-01-05 18:11 | Emergency Room Report ---
History of Present Illness General Chief Complaint: Edema Source: Patient Present Illness HPI 53-year-old female with history of sickle cell anemia who reports has not seen her project specialist in 2 years and always goes to hospital for sickle cell crisis with the last one being 5 months ago here complaining of extreme pain bilateral lower extremities as well as multiple insect bites rating them painful on the left lower extremity. Reports that he has been having this pain for several months however wants to be checked out for clot. 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 Requesting something for pain at the emergency room. Denies any fever and chills, chest pain, shortness of breath, palpitation, abdominal pain nausea vomiting. Patient sitting comfortably with stable vital signs and other exams elevated blood pressure reports that she has history of hypertension and takes medication. Patient has not had any recent sick count or CBC. Patient reports that she last went to [facility] 5 months ago for sickle cell disease. Allergies: Coded Allergies: GABAPENTIN (Verified Allergy, Unknown, 02/05/18) Patient History Past Medical History: see triage record Past Surgical History: unable to obtain Pertinent Family History: none Last Menstrual Period: n/a Now: No Immunizations: UTD Reviewed Nursing Documentation: PMH: Agreed; PSxH: Agreed Nursing Documentation-PMH Past Medical History: No History, Except For Hx Cardiac Problems: No - Sickle cell disease, Thalassemia Hx Hypertension: Yes Hx Pacemaker: No Hx Asthma: Yes - Bronchitis, Emphysema Hx COPD: No Hx Diabetes: No Hx Cancer: No Hx Gastrointestinal Problems: No - Gastritis, GERD, hemorrhoid Hx Dialysis: No Hx Neurological Problems: No Hx Cerebrovascular Accident: No Hx Seizures: No Review of Systems All Other Systems: negative except mentioned in HPI Physical Exam Vital Signs Date Time Temp Pulse Resp B/P (MAP) Pulse Ox O2 Delivery O2 Flow Rate FiO2 01/05/19 16:59 98.2 70 18 174/92 (119) 99 Room Air Sp02 EP Interpretation: reviewed, normal General Appearance: no apparent distress, alert, GCS 15, non-toxic Head: normocephalic, atraumatic Eyes: bilateral eye normal inspection, bilateral eye PERRL ENT: hearing grossly normal, normal pharynx, no angioedema, normal voice Neck: full range of motion, supple/symm/no masses Respiratory: chest non-tender, lungs clear, normal breath sounds, speaking full sentences Cardiovascular #1: regular rate, rhythm, no edema Cardiovascular #2: 2+ dorsalis pedis (R), 2+ dorsalis pedis (L) Gastrointestinal: normal bowel sounds, non tender, soft, non-distended, no guarding, no rebound Rectal: deferred Genitourinary: no CVA tenderness Musculoskeletal: back normal, gait/station normal, normal range of motion, non- tender, no calf tenderness Neurologic: alert, oriented x3, responsive, motor strength/tone normal, sensory intact, speech normal Psychiatric: judgement/insight normal, memory normal, mood/affect normal, no suicidal/homicidal ideation Skin: other - Infected insect bite left knee Lymphatic: normal inspection, no adenopathy Medical Decision Making PA Attestation All diagnoses and treatment plans were reviewed and discussed with my supervising physician Dr. Sylvester Diagnostic Impression: Primary Impression: Infected insect bite Additional Impression: Chronic back pain ER Course 53-year-old female with history of sickle cell anemia who reports has not seen her project specialist in 2 years and always goes to hospital for sickle cell crisis with the last one being 5 months ago here complaining of extreme pain bilateral lower extremities as well as multiple insect bites rating them painful on the left lower extremity. Reports that he has been having this pain for several months however wants to be checked out for clot. 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 Requesting something for pain at the emergency room. Denies any fever and chills, chest pain, shortness of breath, palpitation, abdominal pain nausea vomiting. Patient sitting comfortably with stable vital signs and other exams elevated blood pressure reports that she has history of hypertension and takes medication. Patient has not had any recent sick count or CBC. Patient reports that she last went to [facility] 5 months ago for sickle cell disease. Ddx considered but are not limited to : Cellulitis, DVT, superficial infection, abscess Vital signs: are WNL, pt. is afebrile H&PE are most consistent with:infected insect bite ORDERS: CBC, CMP, UA, retic count ED INTERVENTIONS: morphine, benadryl, zofran DISCHARGE: At this time pt. is stable for d/c to home. Will provide printed patient care instructions, and any necessary prescriptions. Care plan and follow up instructions have been discussed with the patient prior to discharge. No indication for testing for DVT as patient has bilateral leg edema for several months related to her obesity as well as sickle cell and also has good pulses and no calf tenderness noted low suspicion for DVT or PAD EKG Diagnostic Results Rate: normal Rhythm: NSR ST Segments: no acute changes Last Vital Signs Date Time Temp Pulse Resp B/P (MAP) Pulse Ox O2 Delivery O2 Flow Rate FiO2 01/05/19 17:49 98.2 86 14 136/83 100 Room Air Disposition: HOME, SELF-CARE Condition: Stable Referrals: [facility],REFERRING (PCP) Patient Instructions: Edema, [id number], Insect Bite, [id number] Additional Instructions: Take medication as directed follow-up with your primary care provider worsening symptoms return to emergency room Demetrice Hu Jan 05, 2019 18:11
[2019-01-05] MEDS ORDERED: AUGMENTIN 875-1 EAC1 ORAL (18:52)
[2019-01-05] MEDS ORDERED: HYDROCORTISONE-30 GM TOPIC (18:52)
[2019-01-05 18:55] VITALS: BP 147/84
[2019-01-05] MEDS ORDERED: Fluconazole 150mg tab ORAL ONE (19:00)
[2019-01-05 19:01] VITALS: BP 147/84
[2019-01-05] MEDS ORDERED: FLUCONAZOLE100 MG ORAL (19:01)
--- NOTE | 2019-01-05 19:01 | NUR ---
ER DISCHARGE NOTE: Patient is cleared to be discharged per ERMD, pt is aox4, on room air, with stable vital signs. pt was given dc and prescription instructions, pt was able to verbalize understanding, pt id band and iv site removed without complications. pt is able to ambulate with steady gait. pt took all belongings.
--- NOTE | 2019-01-06 13:22 | Cardiology Report ---
APPROVED REPORT EKG Measurement Heart [id number] Normal sinus rhythm Normal ECG
== END 2019-01-05 19:01 | disposition home or self-care (01) ==
LOC: EMR 17:27
DX: S80.262A Insect bite (nonvenomous), left knee, initial encounter (principal); L08.9 Local infection of the skin and subcutaneous tissue, unspecified; G89.29 Other chronic pain; M54.9 Dorsalgia, unspecified; M79.605 Pain in left leg; M79.604 Pain in right leg; K21.9 Gastro-esophageal reflux disease without esophagitis; I10 Essential (primary) hypertension; D57.1 Sickle-cell disease without crisis; Z88.8 Allergy status to other drugs, medicaments and biological substances; W57.XXXA Bitten or stung by nonvenomous insect and other nonvenomous arthropods, initial encounter; Y92.9 Unspecified place or not applicable
CPT/HCPCS: 36415; 80053; 80307; 81001; 81025; 85025; 85044; 85610; 85730; 86850; 86900; 86901; 93005; 96374; 96375; J1200; J2270; J2405; Z7502; 99284

== ENCOUNTER 2019-01-25 22:48 | Emergency (ER) | payer OTHER ==
[~2019-01-25] VITALS: Ht 170.2 cm; Wt 113.4 kg
[~2019-01-25 22:48] MED LIST changes: +HYDROCORTISONE-30 GM TOPIC
[2019-01-25 23:00] VITALS: BP 142/81
--- NOTE | 2019-01-25 23:00 | NUR ---
ER Nurse Note: Pt walked in c/o sore throat since three days ago 01/23. Pt stated she took throat lozenges but not helpful. Pt denies cough but has slight mucus.
[2019-01-25] MEDS ORDERED: PREDNISONE20 MG ORAL (23:08)
[2019-01-25] MEDS ORDERED: PROMETHAZINE-C118 M1 ORAL (23:08)
[2019-01-25] MEDS ORDERED: ZITHROMAX250 MG ORAL (23:08)
--- NOTE | 2019-01-25 23:09 | Emergency Room Report ---
History of Present Illness General Chief Complaint: Sore Throat Source: Patient Present Illness [facility] This is a 53-year-old female with history of asthma and high blood pressure. She presents with complaint of sore throat and cough. Onset for last 3 days. No nausea no vomiting. No fever chills. Worse with coughing. Worse with swallowing. Pain is 9 out of 10. Coughing is productive of sputum. Also with hoarseness of her voice. Allergies: Coded Allergies: GABAPENTIN (Verified Allergy, Unknown, 02/05/18) Patient History Past Medical History: see triage record, old chart reviewed, HTN, asthma Past Surgical History: none Pertinent Family History: none Social History: Denies: smoking Last Menstrual Period: na Now: No Immunizations: other Reviewed Nursing Documentation: PMH: Agreed; PSxH: Agreed Nursing Documentation-PMH Hx Cardiac Problems: No - Sickle cell disease, Thalassemia Hx Hypertension: Yes Hx Pacemaker: No Hx Asthma: Yes - Bronchitis, Emphysema Hx COPD: No Hx Diabetes: No Hx Cancer: No Hx Gastrointestinal Problems: No - Gastritis, GERD, hemorrhoid Hx Dialysis: No Hx Neurological Problems: No Hx Cerebrovascular Accident: No Hx Seizures: No Review of Systems Eye: Denies: eye pain, blurred vision ENT: Reports: throat pain; Denies: ear pain, nose congestion, throat swelling Respiratory: Reports: cough; Denies: shortness of breath Cardiovascular: Denies: chest pain, palpitations Gastrointestinal: Denies: abdominal pain, diarrhea, nausea, vomiting Musculoskeletal: Denies: back pain, joint pain Skin: Denies: rash Neurological: Denies: headache, numbness Endocrine: Denies: increased thirst, increased urine Hematologic/Lymphatic: Denies: easy bruising All Other Systems: negative except mentioned in HPI Physical Exam Vital Signs Date Time Temp Pulse Resp B/P (MAP) Pulse Ox O2 Delivery O2 Flow Rate FiO2 01/25/19 22:54 97.9 75 16 142/81 (101) 96 Room Air Vitals unremarkable Sp02 EP Interpretation: reviewed, normal General Appearance: well appearing, no apparent distress, alert Head: normocephalic, atraumatic Eyes: bilateral eye PERRL, bilateral eye EOMI ENT: hearing grossly normal, normal pharynx Neck: full range of motion, supple, no meningismus Respiratory: chest non-tender, lungs clear, normal breath sounds Cardiovascular #1: regular rate, rhythm, no murmur Gastrointestinal: normal bowel sounds, non tender, no mass, no organomegaly, no bruit, non-distended Musculoskeletal: back normal, gait/station normal, normal range of motion Psychiatric: mood/affect normal Medical Decision Making Diagnostic Impression: Primary Impression: Pharyngitis, acute Qualified Codes: J02.9 - Acute pharyngitis, unspecified Additional Impression: Asthma Qualified Codes: J45.21 - Mild intermittent asthma with (acute) exacerbation ER Course This patient presents with upper respiratory infection with sore throat. Most likely viral in nature. We will put her on antibiotics. No evidence of ACS, PE , dissection to name a few. Will discharge home. Last Vital Signs Date Time Temp Pulse Resp B/P (MAP) Pulse Ox O2 Delivery O2 Flow Rate FiO2 01/25/19 22:54 97.9 75 16 142/81 (101) 96 Room Air Status: improved Disposition: HOME, SELF-CARE Condition: Stable Scripts Codeine/Promethazine Hcl* (PROMETHAZINE-CODEINE SYRUP*) 118 Ml Syrup 5 ML ORAL Q6H PRN for For Cough, #120 ML 0 Refills Prov: Herb Dickey MD 01/25/19 Azithromycin* (ZITHROMAX*) 250 Mg Tablet 250 MG ORAL DAILY, #6 TAB 0 Refills Take two tables once daily for 1 day, then one tablet once daily for 4 days. Prov: Herb Dickey MD 01/25/19 Prednisone* (PREDNISONE*) 20 Mg Tablet 40 MG ORAL DAILY, #8 TAB Prov: Herb Dickey MD 01/25/19 Patient Instructions: Sore Throat Additional Instructions: Increase fluids. Salt water gargle. Follow-up with your doctor in 7 days. Return if symptoms worsen. Herb Dickey MD Jan 25, 2019 23:09
[2019-01-25 23:15] VITALS: BP 142/81
--- NOTE | 2019-01-25 23:15 | NUR ---
ER Nurse Note: Pt seen, treated, medically cleared for discharge by ERMD. Discharge instuctions and prescriptions given with repeat verbalization by pt. Emphasized to follow up with primay care provider. All orders completed per ERMD orders. Pt a&ox4, VSS, no signs of distress. ID band removed. All questions answered per pt's questions. Pt left with all belongings, left with own transportation.
== END 2019-01-25 23:15 | disposition home or self-care (01) ==
LOC: EMR 23:06
DX: J02.9 Acute pharyngitis, unspecified (principal); J45.21 Mild intermittent asthma with (acute) exacerbation; I10 Essential (primary) hypertension; Z88.8 Allergy status to other drugs, medicaments and biological substances; K21.9 Gastro-esophageal reflux disease without esophagitis
CPT/HCPCS: 99282; J7512

== ENCOUNTER 2019-03-21 21:28 | Emergency (ER) | payer OTHER ==
[~2019-03-21] VITALS: Ht 170.2 cm; Wt 113.4 kg
[~2019-03-21 21:28] MED LIST changes: +ZITHROMAX250 MG ORAL
[2019-03-21 21:45] VITALS: BP 168/101
--- NOTE | 2019-03-21 21:50 | Emergency Room Report ---
History of Present Illness General Chief Complaint: Edema Source: Patient Present Illness HPI Is a 54-year-old female with history of hypertension. She also has chronic lower extremity edema and takes [place] for it. She presents with complaint of lower extremity swelling and pain. This is a chronic problem. She is taking 80 mg Lasix which she said is not helping. No nausea no vomiting. Also has a cough for last few days. States she cannot stop coughing. No fever chills. No chest pain. Denies any other complaint. Allergies: Coded Allergies: GABAPENTIN (Verified Allergy, Unknown, 02/05/18) Patient History Past Medical History: see triage record, old chart reviewed, HTN, asthma Past Surgical History: none Pertinent Family History: none Social History: Denies: smoking Now: No Immunizations: other Reviewed Nursing Documentation: PMH: Agreed; PSxH: Agreed Nursing Documentation-PMH Past Medical History: No Stated History Hx Cardiac Problems: No - Sickle cell disease, Thalassemia Hx Hypertension: Yes Hx Pacemaker: No Hx Asthma: Yes - Bronchitis, Emphysema Hx COPD: No Hx Diabetes: No Hx Cancer: No Hx Gastrointestinal Problems: No - Gastritis, GERD, hemorrhoid Hx Dialysis: No Hx Neurological Problems: No Hx Cerebrovascular Accident: No Hx Seizures: No Review of Systems Eye: Denies: eye pain, blurred vision ENT: Denies: ear pain, nose congestion, throat swelling Respiratory: Reports: cough; Denies: shortness of breath Cardiovascular: Denies: chest pain, palpitations Gastrointestinal: Denies: abdominal pain, diarrhea, nausea, vomiting Musculoskeletal: Reports: muscle pain; Denies: back pain, joint pain Skin: Denies: rash Neurological: Denies: headache, numbness Endocrine: Denies: increased thirst, increased urine Hematologic/Lymphatic: Denies: easy bruising All Other Systems: negative except mentioned in HPI Physical Exam Vital Signs Date Time Temp Pulse Resp B/P (MAP) Pulse Ox O2 Delivery O2 Flow Rate FiO2 03/21/19 21:38 98.4 80 22 166/102 (123) 96 Room Air Vitals with high blood pressure Sp02 EP Interpretation: reviewed, normal General Appearance: well appearing, no apparent distress, alert Head: normocephalic, atraumatic Eyes: bilateral eye PERRL, bilateral eye EOMI ENT: hearing grossly normal, normal pharynx Neck: full range of motion, supple, no meningismus Respiratory: chest non-tender, lungs clear, normal breath sounds Cardiovascular #1: regular rate, rhythm, no murmur Gastrointestinal: normal bowel sounds, non tender, no mass, no organomegaly, no bruit, non-distended Musculoskeletal: back normal, normal range of motion, gait/station normal, tender - Diffuse tenderness. No pitting edema Psychiatric: mood/affect normal Medical Decision Making Diagnostic Impression: Primary Impression: Hypertension Qualified Codes: I10 - Essential (primary) hypertension Additional Impression: Peripheral neuropathy Qualified Codes: G60.9 - Hereditary and idiopathic neuropathy, unspecified ER Course Patient presents with neuropathy. I see no evidence of peripheral dependent edema. She did gain a lot of weight in the last year. She went from 160 to 250. This may explain her high blood pressure. She is taking 80 mg Lasix a day. That is too much and may be caused some prerenal azotemia. I will wean that off and put her on Norvasc. Will discharge home. Last Vital Signs Date Time Temp Pulse Resp B/P (MAP) Pulse Ox O2 Delivery O2 Flow Rate FiO2 03/21/19 21:38 98.4 80 22 166/102 (123) 96 Room Air Status: improved Disposition: HOME, SELF-CARE Condition: Stable Scripts Amlodipine Besylate (Norvasc) 10 Mg Tablet 10 MG ORAL DAILY, #90 TAB Prov: Herb Dickey MD 03/21/19 Additional Instructions: Cut down your Lasix to 40 mg a day for a week. And then 20 mg for a week. And then stop. Take new blood pressure medication. Follow-up with your doctor within a week. Return if worse. Herb Dickey MD Mar 21, 2019 21:50
[2019-03-21] MEDS ORDERED: Ketorolac 30mg Inj IV ONE (22:00)
[2019-03-21 22:20] LABS: BASOPHILS % (AUTO) 1.8 % (0.0-2.0); EOSINOPHILS % (AUTO) 7.5 % (0.0-3.0); HEMOGLOBIN 12.7 G/DL (12.0-16.0); MEAN CORPUSCULAR VOLUME 65 FL (80-99); MONOCYTES % (AUTO) 9.3 % (1.0-10.0); NEUTROPHILS % (AUTO) 44.4 % (45.0-75.0); PLATELET COUNT 205 K/UL (150-450); RED BLOOD COUNT 6.33 M/UL (4.20-5.40); RED CELL DISTRIBUTION WIDTH 11.5 % (11.6-14.8); WHITE BLOOD COUNT 7.8 K/UL (4.8-10.8)
[2019-03-21 22:20] LABS: APPEARANCE,URINE CLEAR; BILIRUBIN, URINE NEGATIVE (NEGATIVE); COLOR,URINE PALE YELLOW; GLUCOSE, URINE (UA) NEGATIVE (NEGATIVE); KETONES,URINE NEGATIVE (NEGATIVE); LEUKOCYTE ESTERASE ,URINE NEGATIVE (NEGATIVE); NITRITE,URINE NEGATIVE (NEGATIVE); PH,URINE 6.5 (4.5-8.0); PROTEIN,URINE NEGATIVE (NEGATIVE); UROBILINOGEN,URINE NORMAL MG/DL (0.0-1.0)
[2019-03-21 22:30] LABS: ANION GAP -9 mmol/L (5-15); BLOOD UREA NITROGEN 22 mg/dL (7-18); CALCIUM 9.4 MG/DL (8.5-10.1); CARBON DIOXIDE 28 MMOL/L (21-32); CHLORIDE 106 MMOL/L (98-107); CREATININE 1.1 MG/DL (0.55-1.30); POTASSIUM 3.3 MMOL/L (3.5-5.1); SODIUM 125 MMOL/L (136-145)
[2019-03-21] MEDS ORDERED: NORVASC10 MG ORAL (23:21)
[2019-03-21 23:32] VITALS: BP 165/102
== END 2019-03-21 23:32 | disposition home or self-care (01) ==
LOC: EMR 22:00
DX: I10 Essential (primary) hypertension (principal); G60.9 Hereditary and idiopathic neuropathy, unspecified; J45.909 Unspecified asthma, uncomplicated
CPT/HCPCS: 36415; 80048; 80307; 81001; 83880; 85025; 96374; 99284; J1885

== ENCOUNTER 2020-03-09 08:40 | Emergency (ER) | payer OTHER ==
[~2020-03-09] VITALS: Ht 170.2 cm; Wt 108.4 kg
[~2020-03-09 08:40] MED LIST changes: +K-TAB ER20 MEQ PO; +NORVASC10 MG ORAL
[2020-03-09 08:50] VITALS: BP 141/83
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
[2020-03-09] MEDS ORDERED: TRAMADOL HCL50 MG ORAL (08:54)
[2020-03-09] MEDS ORDERED: IBUPROFEN600 M1 ORAL (08:54)
[2020-03-09] MEDS ORDERED: SILVER SULFADIA50 GM TP (08:54)
[2020-03-09] MEDS ORDERED: Ketorolac 30mg Inj IM ONE (09:00)
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
[2020-03-09 09:14] VITALS: BP 141/83
--- NOTE | 2020-03-09 09:14 | NUR ---
ED Nurse Note: Pt cleared by ERMD for discharge. DC instructions/prescription was given and explained to pt and verbalized understanding of teachings. All medical deviecs such as ID band removed. Pt is AAO x4, ambulatory and left with all personal belongings.
== END 2020-03-09 09:14 | disposition home or self-care (01) ==
LOC: EMR 08:51
DX: T21.22XA Burn of second degree of abdominal wall, initial encounter (principal); T24.212A Burn of second degree of left thigh, initial encounter; X10.0XXA Contact with hot drinks, initial encounter; Y92.511 Restaurant or cafe as the place of occurrence of the external cause; I11.0 Hypertensive heart disease with heart failure; I50.9 Heart failure, unspecified; D57.40 Sickle-cell thalassemia without crisis; J45.909 Unspecified asthma, uncomplicated
CPT/HCPCS: 96372; J1885; Z7502; 99283

== ENCOUNTER 2020-06-30 17:12 | Emergency (ER) | payer OTHER ==
[~2020-06-30] VITALS: Ht 170.2 cm; Wt 111.1 kg
[~2020-06-30 17:12] MED LIST changes: +IBUPROFEN600 M1 ORAL; +SILVER SULFADIA50 GM TP; +TRAMADOL HCL50 MG ORAL
[2020-06-30] MEDS ORDERED: Ketorolac 30mg Inj IV ONE (18:45)
[2020-06-30] MEDS ORDERED: Morphine Sulfate 4mg/ml Inj (IV USE ONLY) IVP ONE (18:45)
--- NOTE | 2020-06-30 19:00 | Emergency Room Report ---
History of Present Illness General Chief Complaint: Abdominal Pain Present Illness HPI Disclaimer: Please note that this report is being documented using DRAGON technology. This can lead to erroneous entry secondary to incorrect interpretation by the dictating instrument. HPI: 55-year old female history of hysterectomy, , presents for right lower quadrant abdominal pain. The symptoms present for the past week or so. She denies any nausea, vomiting, urinary complaints. There is no fever. She was sent by her primary care doctor for further evaluation. It is 10 out of 10 right lower quadrant nonradiating. Allergies: Coded Allergies: GABAPENTIN (Verified Allergy, Unknown, 02/05/18) COVID-19 Screening Contact w/high risk pt: No Experienced COVID-19 symptoms?: No COVID-19 Testing performed BLANKET W[employer]ER HELPER: No Patient History Now: No Reviewed Nursing Documentation: PMH: Agreed; PSxH: Agreed Nursing Documentation-PMH Hx Cardiac Problems: Yes - Sickle cell disease, Thalassemia, CHF Hx Hypertension: Yes Hx Pacemaker: No Hx Asthma: Yes Hx COPD: No Hx Diabetes: No Hx Cancer: No Hx Gastrointestinal Problems: No Hx Dialysis: No Hx Neurological Problems: No Hx Cerebrovascular Accident: No Hx Seizures: No Review of Systems All Other Systems: negative except mentioned in HPI Physical Exam Vital Signs Date Time Temp Pulse Resp B/P (MAP) Pulse Ox O2 Delivery O2 Flow Rate FiO2 06/30/20 18:33 98.1 80 18 180/90 (120) 98 Room Air Sp02 EP Interpretation: reviewed, normal General Appearance: well appearing, no apparent distress Head: normocephalic, atraumatic Eyes: bilateral eye PERRL, bilateral eye EOMI ENT: hearing grossly normal, moist mucus membranes Neck: full range of motion, supple Respiratory: lungs clear, normal breath sounds, no rhonchi, no respiratory distress, no retraction, no wheezing Cardiovascular #1: normal peripheral pulses, regular rate, rhythm, no murmur Gastrointestinal: soft, non-distended, no guarding, tenderness - Mild right lower quadrant tenderness Neurologic: alert, oriented x3, no focal defects Skin: normal color, warm/dry Medical Decision Making Diagnostic Impression: Primary Impression: Abdominal pain ER Course MDM: Differential included but not limited to UTI, ovarian cyst, constipation, did consider appendicitis as well. Patient did complain of pain but it been 1 to 2 weeks. Clinical course-IV inserted, pa pain control given. Laboratory studies showed n o evidence of UTI, no leukocytosis noted electrolytes within normal limits. CT scan of the abdomen pelvis showed no acute pathology. Patient's pain controlled. Vital signs were stable. On my reassessment patient did report some element of constipation. She does take [place] regularly. I recommended a stool softener. Otherwise stable for discharge, follow-up PMD, return precaut ions given. Labs - Laboratory Tests Test 06/30/20 19:01 White Blood Count 7.5 K/UL (4.8-10.8) Red Blood Count 6.47 M/UL (4.20-5.40) H Hemoglobin 12.1 G/DL (12.0-16.0) Hematocrit 41.6 % (37.0-47.0) Mean Corpuscular Volume 64 FL (80-99) L Mean Corpuscular Hemoglobin 18.7 PG (27.0-31.0) L Mean Corpuscular Hemoglobin Concent 29.2 G/DL (32.0-36.0) L Red Cell Distribution Width 14.8 % (11.6-14.8) Platelet Count 224 K/UL (150-450) Mean Platelet Volume 11.4 FL (6.5-10.1) H Neutrophils (%) (Auto) 43.8 % (45.0-75.0) L Lymphocytes (%) (Auto) 39.5 % (20.0-45.0) Monocytes (%) (Auto) 9.3 % (1.0-10.0) Eosinophils (%) (Auto) 6.2 % (0.0-3.0) H Basophils (%) (Auto) 1.1 % (0.0-2.0) Urine Color Pale yellow Urine Appearance Slightly cloudy Urine pH 5 (4.5-8.0) Urine Specific [place] 1.020 (1.005-1.035) Urine Protein Negative (NEGATIVE) Urine Glucose (UA) Negative (NEGATIVE) Urine Ketones Negative (NEGATIVE) Urine Blood Negative (NEGATIVE) Urine Nitrite Negative (NEGATIVE) Urine Bilirubin Negative (NEGATIVE) Urine Urobilinogen Normal MG/DL (0.0-1.0) Urine Leukocyte Esterase Negative (NEGATIVE) Urine RBC 0-2 /HPF (0 - 2) Urine WBC 0-2 /HPF (0 - 2) Urine Squamous Epithelial Cells Few /LPF (NONE/OCC) Urine Bacteria Few /HPF (NONE) Urine HCG, Qualitative Negative (NEGATIVE) Sodium Level 143 MMOL/L (136-145) Potassium Level 4.5 MMOL/L (3.5-5.1) Chloride Level 107 MMOL/L (98-107) Carbon Dioxide Level 30 MMOL/L (21-32) Anion Gap 6 mmol/L (5-15) Blood Urea Nitrogen 18 mg/dL (7-18) Creatinine 1.1 MG/DL (0.55-1.30) Estimated Glomerular Filtration Rate > 60 mL/min (>60) Glucose Level 107 MG/DL (74-106) H Calcium Level 10.1 MG/DL (8.5-10.1) Total Bilirubin 0.4 MG/DL (0.2-1.0) Aspartate Amino Transferase (AST) 20 U/L (15-37) Alanine Aminotransferase (ALT) 30 U/L (12-78) Alkaline Phosphatase 130 U/L (46-116) H Total Protein 8.2 G/DL (6.4-8.2) Albumin 4.2 G/DL (3.4-5.0) Globulin 4.0 g/dL Albumin/Globulin Ratio 1.0 (1.0-2.7) Lipase 115 U/L (73-393) On reevaluation: Patient no acute distress Plan-discharge home follow-up PMD return precautions. CT/MRI/US Diagnostic Results CT/MRI/US Diagnostic Results : Imaging Test Ordered: CT abdomen pelvis Impression No acute pathology Last Vital Signs Date Time Temp Pulse Resp B/P (MAP) Pulse Ox O2 Delivery O2 Flow Rate FiO2 06/30/20 18:33 98.1 80 18 180/90 (120) 98 Room Air Status: improved Disposition: HOME, SELF-CARE Condition: Improved Referrals: [facility],REFERRING (PCP) Adalberto Mondragon M.D. Jun 30, 2020 19:00
--- NOTE | 2020-06-30 19:10 | NUR ---
1849: pt placed in room 3. iv started, blood sent to lab, urine sent. 1909: handoff to stephon rn
[2020-06-30 19:22] LABS: BASOPHILS % (AUTO) 1.1 % (0.0-2.0); EOSINOPHILS % (AUTO) 6.2 % (0.0-3.0); HEMATOCRIT 41.6 % (37.0-47.0); HEMOGLOBIN 12.1 G/DL (12.0-16.0); LYMPHOCYTES % (AUTO) 39.5 % (20.0-45.0); MEAN CORPUSCULAR VOLUME 64 FL (80-99); MONOCYTES % (AUTO) 9.3 % (1.0-10.0); NEUTROPHILS % (AUTO) 43.8 % (45.0-75.0); PLATELET COUNT 224 K/UL (150-450); RED BLOOD COUNT 6.47 M/UL (4.20-5.40); RED CELL DISTRIBUTION WIDTH 14.8 % (11.6-14.8); WHITE BLOOD COUNT 7.5 K/UL (4.8-10.8)
[2020-06-30 19:24] LABS: APPEARANCE,URINE SLIGHTLY CLOUDY; BILIRUBIN, URINE NEGATIVE (NEGATIVE); COLOR,URINE PALE YELLOW; GLUCOSE, URINE (UA) NEGATIVE (NEGATIVE); KETONES,URINE NEGATIVE (NEGATIVE); LEUKOCYTE ESTERASE ,URINE NEGATIVE (NEGATIVE); NITRITE,URINE NEGATIVE (NEGATIVE); PH,URINE 5 (4.5-8.0); PROTEIN,URINE NEGATIVE (NEGATIVE); UROBILINOGEN,URINE NORMAL MG/DL (0.0-1.0)
--- NOTE | 2020-06-30 19:42 | NUR ---
pt resting on the cart. no complaints at this time. v/s stable. pt in no distress. will continue to monitor pt
[2020-06-30 20:19] LABS: ANION GAP 6 mmol/L (5-15); BLOOD UREA NITROGEN 18 mg/dL (7-18); CALCIUM 10.1 MG/DL (8.5-10.1); CARBON DIOXIDE 30 MMOL/L (21-32); CHLORIDE 107 MMOL/L (98-107); CREATININE 1.1 MG/DL (0.55-1.30); POTASSIUM 4.5 MMOL/L (3.5-5.1); SODIUM 143 MMOL/L (136-145)
[2020-06-30 20:23] LABS: ALANINE AMINOTRANSFERASE 30 U/L (12-78); ALBUMIN 4.2 G/DL (3.4-5.0); ALKALINE PHOSPHATASE 130 U/L (46-116); ASPARTATE AMINO TRANSFERASE 20 U/L (15-37); BILIRUBIN,TOTAL 0.4 MG/DL (0.2-1.0)
--- NOTE | 2020-06-30 20:30 | NUR ---
pt to ct via wheelchair by construction director
--- NOTE | 2020-06-30 20:45 | NUR ---
pt ambulatory to washroom w steady gait
--- NOTE | 2020-06-30 20:50 | NUR ---
pt back in tx rm. v/s stable. pt in no distress
[2020-06-30 20:54] VITALS: BP 149/86
--- NOTE | 2020-06-30 21:01 | Diagnostic Imaging Report ---
EXAM: CT Abdomen and Pelvis With Intravenous Contrast CLINICAL HISTORY: ABD PAIN TECHNIQUE: Axial computed tomography images of the abdomen and pelvis with intravenous contrast. CTDI is 13 mGy and DLP is 713.2 mGy-cm. One or more of the following dose reduction techniques were used: automated exposure control, adjustment of the mA and/or kV according to patient size, use of iterative reconstruction technique. COMPARISON: No relevant prior studies available. FINDINGS: Lung bases: Unremarkable. No mass. No consolidation. ABDOMEN: Liver: Unremarkable. No mass. Gallbladder and bile ducts: Unremarkable. No calcified stones. No ductal dilation. Pancreas: Unremarkable. No mass. No ductal dilation. Spleen: Unremarkable. No splenomegaly. Adrenals: Unremarkable. No mass. Kidneys and ureters: A 17.5 mm left cortical renal cystic lesion is indeterminate as it is hyperattenuating to water density. Follow-up nonemergent renal ultrasound recommended if not already performed. Stomach and bowel: Unremarkable. No obstruction. No mucosal thickening. PELVIS: Appendix: No findings to suggest acute appendicitis. Bladder: Unremarkable. No mass. Reproductive: Status post hysterectomy. ABDOMEN and PELVIS: Intraperitoneal space: Unremarkable. No free air. No significant fluid collection. Bones/joints: No acute fracture. No dislocation. Soft tissues: Unremarkable. Vasculature: Unremarkable. No abdominal aortic aneurysm. Lymph nodes: Unremarkable. No enlarged lymph nodes. IMPRESSION: No interval changes. No change indeterminate left renal lesion as above.
== END 2020-06-30 21:28 | disposition home or self-care (01) ==
LOC: EMR 18:43
DX: R10.31 Right lower quadrant pain (principal); I50.9 Heart failure, unspecified; I11.0 Hypertensive heart disease with heart failure; Z88.8 Allergy status to other drugs, medicaments and biological substances; Z90.710 Acquired absence of both cervix and uterus
CPT/HCPCS: 36415; 74177; 80053; 81003; 81025; 83690; 85025; 96374; 96375; J1885; J2270; Q9965; Z7502; 99284